=== PATIENT | female | born 1950 | race Caucasian/White ===

== ENCOUNTER → 2017-01-27 | Outpatient (CLI) | payer MEDICARE ==
--- NOTE | 2017-01-27 09:12 | REP ---
Chest two views HISTORY: Ischemic heart disease Comparison: None The lungs are clear. The heart is normal in size. The pulmonary vasculature is normal in appearance. The bony structure is intact. IMPRESSION: No acute disease. Signed by Jax Mg MD 01/27/2017 09:04 A
--- NOTE | 2017-01-27 23:23 | ECGEPIP ---
Stationary ECG Study [facility] Test Date: 2017-01-27 Pat Name: RAYMON RAMSEY Department: Room: - Gender: F Hand Collator: : 1950 Requested By: Laura ALAMO-BC Order Number: [id number] Reading MD: Hoang Novak Measurements Intervals [place] Rate: 56 P: 52 WV: 165 QRS: 27 QRSD: 88 T: 38 QT: 425 QTc: 413 Interpretive Statements SINUS BRADYCARDIA WITH SINUS ARRHYTHMIA No prior ECG available for comparison at the time of interpretation. Electronically Signed On 01-27-2017 23:23:29 EDT by Hoang Novak
== END ==
LOC: M EKG 08:30
PROVIDERS: ATTEND Nurse Practitioner Adult Health
DX: J44.9 Chronic obstructive pulmonary disease, unspecified (principal); J81.1 Chronic pulmonary edema; Z82.49 Family history of ischemic heart disease and other diseases of the circulatory system

== ENCOUNTER 2017-06-26 09:33 | Emergency (ER) | payer OTHER, MEDICARE | END 2017-06-26 11:23 | disposition home or self-care (01) | LOC: M ED 09:33 | DX: S40.012A Contusion of left shoulder, initial encounter (principal); S20.211A Contusion of right front wall of thorax, initial encounter; S20.212A Contusion of left front wall of thorax, initial encounter; V79.88XA Bus occupant (driver) (passenger) injured in other specified transport accidents, initial encounter; Y92.410 Unspecified street and highway as the place of occurrence of the external cause; F17.210 Nicotine dependence, cigarettes, uncomplicated | CPT/HCPCS: 71111 ==

== ENCOUNTER 2017-06-30 19:49 | Emergency (ER) | payer OTHER, MEDICARE ==
[2017-06-30] MEDS: MORPHINE 4 MG/ML 1ML SYRINGE IV (20:30)
[2017-06-30] MEDS: NS 500 ML IV (20:30)
[2017-06-30 20:55] LABS: BASO # 0.1 10^3/uL (0.0-0.2); BASO % 0.7 % (0.0-1.0); EOS # 0.2 10^3/uL (0.0-0.50); EOS % 2.3 % (0.0-3.0); HEMATOCRIT 41.6 % (36.0-47.0); HEMOGLOBIN 13.4 g/dl (12.0-16.0); IMMATURE GRANULOCYTE % 0.3 % (0-0); LYMPH # 2.1 10^3/uL (1.5-4.5); LYMPH % 29.9 % (24.0-44.0); MEAN CORPUSCULAR HEMOGLOBIN 28.4 pg (27.0-33.0); MEAN CORPUSCULAR HGB CONC 32.2 g/dl (32.0-36.5); MEAN CORPUSCULAR VOLUME 88.1 fl (80.0-96.0); MONO # 0.7 10^3/uL (0.0-0.8); MONO % 9.4 % (0.0-5.0); NEUTROPHILS # 3.9 10^3/uL (1.8-7.7); NEUTROPHILS % 57.4 % (36.0-66.0); PLATELET COUNT, AUTOMATED 266 10^3/uL (150-450); RED BLOOD COUNT 4.72 10^6/uL (4.00-5.40); RED CELL DISTRIBUTION WIDTH 14.2 % (11.5-14.5); WHITE BLOOD COUNT 6.9 10^3/uL (4.0-10.0)
[2017-06-30 21:05] LABS: INR 0.88
[2017-06-30 21:06] LABS: PARTIAL THROMBOPLASTIN TIME 29.1 SECONDS (26.8-37.9)
[2017-06-30 21:21] LABS: ALBUMIN 3.2 GM/DL (3.2-5.2); ALBUMIN/GLOBULIN RATIO 0.86 (1.00-1.93); ALKALINE PHOSPHATASE 75 U/L (45-117); ALT/SGPT 17 U/L (12-78); ANION GAP 4 MEQ/L (8-16); AST/SGOT 12 U/L (7-37); BILIRUBIN,DIRECT < 0.1 MG/DL (0.0-0.2); BILIRUBIN,TOTAL 0.3 MG/DL (0.2-1.0); BLOOD UREA NITROGEN 15 MG/DL (7-18); CALCIUM LEVEL 9.2 MG/DL (8.8-10.2); CARBON DIOXIDE LEVEL 30 MEQ/L (21-32); CHLORIDE LEVEL 109 MEQ/L (98-107); CREATININE FOR GFR 0.95 MG/DL (0.55-1.30); GLOMERULAR FILTRATION RATE > 60.0 (>45); GLUCOSE, FASTING 118 MG/DL (70-100); LIPASE 296 U/L (73-393); POTASSIUM SERUM 3.9 MEQ/L (3.5-5.1); SODIUM LEVEL 143 MEQ/L (136-145); TOTAL PROTEIN 6.9 GM/DL (6.4-8.2)
[2017-06-30] MEDS ORDERED: ISOVUE-370 76% 100ML VIAL (Q9967) As Ordered (21:37)
[2017-06-30] MEDS: NORCO 5/325MG TABLET (BULK FOR ED) PO (23:10)
== END 2017-06-30 23:29 | disposition home or self-care (01) ==
LOC: M ED 19:49
DX: S30.1XXA Contusion of abdominal wall, initial encounter (principal); R59.9 Enlarged lymph nodes, unspecified; S20.219A Contusion of unspecified front wall of thorax, initial encounter; Z82.49 Family history of ischemic heart disease and other diseases of the circulatory system; F17.200 Nicotine dependence, unspecified, uncomplicated; W01.198A Fall on same level from slipping, tripping and stumbling with subsequent striking against other object, initial encounter; Y92.89 Other specified places as the place of occurrence of the external cause; Y93.01 Activity, walking, marching and hiking; Y99.0 Civilian activity done for income or pay
CPT/HCPCS: Q9967

== ENCOUNTER 2017-07-16 13:28 | Day surgery (SDC) | payer OTHER, MEDICARE ==
[2017-07-16] MEDS ORDERED: LR 1,000 ML IV ×2 (13:45→17:00)
[2017-07-16] MEDS ORDERED: PROPOFOL 200 MG/20 ML VIAL As Ordered ×2 (16:06)
[2017-07-16] MEDS ORDERED: ONDANSETRON 4MG/2ML VIAL (J2405) IV (17:00)
== END 2017-07-16 17:35 | disposition home or self-care (01) ==
LOC: M SDC 17:35
DX: D49.0 Neoplasm of unspecified behavior of digestive system (principal); R10.31 Right lower quadrant pain; K57.30 Diverticulosis of large intestine without perforation or abscess without bleeding; F17.210 Nicotine dependence, cigarettes, uncomplicated; Z79.82 Long term (current) use of aspirin; Z79.899 Other long term (current) drug therapy
CPT/HCPCS: 45380

== ENCOUNTER → 2017-08-04 | Outpatient (CLI) | payer MEDICARE ==
[2017-08-04 14:20] LABS: BASO # 0.1 10^3/uL (0.0-0.2); BASO % 0.7 % (0.0-1.0); EOS # 0.1 10^3/uL (0.0-0.50); EOS % 1.3 % (0.0-3.0); HEMATOCRIT 47.5 % (36.0-47.0); HEMOGLOBIN 15.3 g/dl (12.0-16.0); IMMATURE GRANULOCYTE % 0.3 % (0-3.0); LYMPH # 1.9 10^3/uL (1.5-4.5); LYMPH % 21.1 % (24.0-44.0); MEAN CORPUSCULAR HEMOGLOBIN 27.9 pg (27.0-33.0); MEAN CORPUSCULAR HGB CONC 32.2 g/dl (32.0-36.5); MEAN CORPUSCULAR VOLUME 86.7 fl (80.0-96.0); MONO # 0.6 10^3/uL (0.0-0.8); NEUTROPHILS # 6.4 10^3/uL (1.8-7.7); NEUTROPHILS % 70.6 % (36.0-66.0); PLATELET COUNT, AUTOMATED 302 10^3/uL (150-450); RED BLOOD COUNT 5.48 10^6/uL (4.00-5.40); RED CELL DISTRIBUTION WIDTH 14.2 % (11.5-14.5); WHITE BLOOD COUNT 9.1 10^3/uL (4.0-10.0)
[2017-08-04 14:54] LABS: ALBUMIN 3.9 GM/DL (3.2-5.2); ALBUMIN/GLOBULIN RATIO 1.05 (1.00-1.93); ALKALINE PHOSPHATASE 95 U/L (45-117); ALT/SGPT 17 U/L (12-78); ANION GAP 6 MEQ/L (8-16); AST/SGOT 14 U/L (7-37); BILIRUBIN,TOTAL 0.6 MG/DL (0.2-1.0); BLOOD UREA NITROGEN 13 MG/DL (7-18); CALCIUM LEVEL 9.9 MG/DL (8.8-10.2); CARBON DIOXIDE LEVEL 30 MEQ/L (21-32); CHLORIDE LEVEL 104 MEQ/L (98-107); CREATININE FOR GFR 0.88 MG/DL (0.55-1.30); GLOMERULAR FILTRATION RATE > 60.0 (>45); GLUCOSE, FASTING 97 MG/DL (70-100); POTASSIUM SERUM 4.7 MEQ/L (3.5-5.1); SODIUM LEVEL 140 MEQ/L (136-145); TOTAL PROTEIN 7.6 GM/DL (6.4-8.2)
== END ==
LOC: M LAB 13:39
DX: Z01.818 Encounter for other preprocedural examination (principal); R05 Cough; B34.9 Viral infection, unspecified; Z79.899 Other long term (current) drug therapy; Z44.9 Encounter for fitting and adjustment of unspecified external prosthetic device
CPT/HCPCS: 71046

== ENCOUNTER 2017-08-09 08:59 | Inpatient (IN) | payer MEDICARE ==
[2017-08-09] MEDS ORDERED: fentaNYL 250 MCG/5 ML INJECTION (J3010) As Ordered (09:10)
[2017-08-09] MEDS ORDERED: LIDOCAINE 2% INJ 100 MG/5 ML SDV (FOR ANES.) As Ordered (09:10)
[2017-08-09] MEDS ORDERED: PROPOFOL 200 MG/20 ML VIAL As Ordered (09:10)
[2017-08-09] MEDS ORDERED: ROCURONIUM BROMIDE 50 MG/5 ML VIAL As Ordered (09:10)
[2017-08-09] MEDS ORDERED: MIDAZOLAM INJ 2 MG/2 ML VIAL (J2250) As Ordered (09:10)
[2017-08-09] MEDS: LR 1,000 ML IV ×4 (10:24→19:22)
[2017-08-09] MEDS ORDERED: ERTAPENEM 1 GM INJ (INVanz) (J1335) As Ordered (10:33)
[2017-08-09] MEDS: ALVIMOPAN 12 MG CAPSULE (ENTEREG) PO ×2 (10:49→22:05)
[2017-08-09] MEDS: ERTAPENEM SODIUM 1 GM in NS 50 ML IV (11:53)
[2017-08-09] MEDS: HEPARIN SOD (PORCINE) 5000 UNITS/ML VIAL SQ (12:02)
[2017-08-09] MEDS ORDERED: PHENYLephrine HCL 500 MCG/5 ML (100MCG/ML) SYRINGE (J2370) As Ordered (12:13)
[2017-08-09] MEDS ORDERED: GLYCOPYRROLATE INJ 0.2 MG/ML 2 ML VIAL As Ordered (12:54)
[2017-08-09] MEDS ORDERED: NEOSTIGMINE 10 MG/10 ML VIAL (J2710) As Ordered (12:54)
[2017-08-09] MEDS ORDERED: ONDANSETRON 4MG/2ML VIAL (J2405) As Ordered (12:55)
[2017-08-09] MEDS ORDERED: dexameTHASONE 4 MG/ML 1ML VIAL (J1100) As Ordered ×2 (12:55)
[2017-08-09] MEDS ORDERED: KETOROLAC 60 MG/2 ML VIAL (J1885) As Ordered (12:55)
[2017-08-09] MEDS ORDERED: HYDROmorphone HCL 2 MG/ML 1ML VIAL (J1170) As Ordered (12:57)
[2017-08-09] MEDS: BUPIVACAINE HCL 0.25% 30 ML VIAL As Ordered (14:44)
[2017-08-09] MEDS: LIDOCAINE 1% SDV INJ 30 ML VIAL As Ordered (14:44)
[2017-08-09] MEDS ORDERED: NORCO, ANEXSIA 5/325MG TABLET (HYDROcodone/ACETAMINOPHEN) PO (15:00)
[2017-08-09] MEDS ORDERED: MORPHINE 4 MG/ML 1ML VIAL (J2270) IV (15:00)
[2017-08-09] MEDS: METOCLOPRAMIDE INJ 10MG/2ML VIAL (J2765) IV (15:20)
[2017-08-09] MEDS: ONDANSETRON 4MG/2ML VIAL (J2405) IV ×2 (15:40→21:36)
[2017-08-09] MEDS ORDERED: METOCLOPRAMIDE INJ 10MG/2ML VIAL (J2765) IV (15:45)
[2017-08-09] MEDS ORDERED: PERCOCET 5MG/325MG TAB PO (15:45)
[2017-08-09] MEDS ORDERED: fentaNYL 100 MCG/2 ML INJECTION (J3010) IV (15:45)
[2017-08-09] MEDS ORDERED: HYDROmorphone HCL 1 MG/ML SYRINGE (J1170) IV (15:45)
[2017-08-09] MEDS: PANTOPRAZOLE 40MG INJ (PROTONIX) (C9113) IV (16:39)
[2017-08-09] MEDS: HEPARIN SOD (PORCINE) 5000 UNITS/ML VIAL SC ×2 (16:40→22:05)
[2017-08-09] MEDS: VITAMIN B COMPLEX/VIT C CAP PO (16:57)
[2017-08-09] MEDS: CYANOCOBALAMIN 500 MCG TAB PO (16:57)
[2017-08-09] MEDS: VITAMIN D 1,000 INTERNATIONAL UNITS TABLET PO (16:58)
[2017-08-10] MEDS: LR 1,000 ML IV ×3 (01:47→14:58)
[2017-08-10 05:34] LABS: BASO % 0.1 % (0.0-1.0); HEMATOCRIT 38.4 % (36.0-47.0); HEMOGLOBIN 12.3 g/dl (12.0-16.0); IMMATURE GRANULOCYTE % 0.4 % (0-3.0); LYMPH # 0.9 10^3/uL (1.5-4.5); LYMPH % 11.3 % (24.0-44.0); MEAN CORPUSCULAR HEMOGLOBIN 27.5 pg (27.0-33.0); MEAN CORPUSCULAR VOLUME 85.7 fl (80.0-96.0); MONO # 0.5 10^3/uL (0.0-0.8); MONO % 6.2 % (0.0-5.0); NEUTROPHILS # 6.4 10^3/uL (1.8-7.7); PLATELET COUNT, AUTOMATED 252 10^3/uL (150-450); RED BLOOD COUNT 4.48 10^6/uL (4.00-5.40); RED CELL DISTRIBUTION WIDTH 14.3 % (11.5-14.5); WHITE BLOOD COUNT 7.8 10^3/uL (4.0-10.0)
[2017-08-10] MEDS: HEPARIN SOD (PORCINE) 5000 UNITS/ML VIAL SC ×3 (05:44→21:11)
[2017-08-10 06:04] LABS: ANION GAP 5 MEQ/L (8-16); BLOOD UREA NITROGEN 15 MG/DL (7-18); CALCIUM LEVEL 8.5 MG/DL (8.8-10.2); CARBON DIOXIDE LEVEL 28 MEQ/L (21-32); CHLORIDE LEVEL 107 MEQ/L (98-107); CREATININE FOR GFR 0.79 MG/DL (0.55-1.30); GLOMERULAR FILTRATION RATE > 60.0 (>45); GLUCOSE, FASTING 135 MG/DL (70-100); POTASSIUM SERUM 4.1 MEQ/L (3.5-5.1); SODIUM LEVEL 140 MEQ/L (136-145)
[2017-08-10] MEDS: VITAMIN D 1,000 INTERNATIONAL UNITS TABLET PO (09:38)
[2017-08-10] MEDS: PANTOPRAZOLE 40MG INJ (PROTONIX) (C9113) IV (09:38)
[2017-08-10] MEDS: ALVIMOPAN 12 MG CAPSULE (ENTEREG) PO ×2 (09:38→21:11)
[2017-08-10] MEDS: VITAMIN B COMPLEX/VIT C CAP PO (09:38)
[2017-08-10] MEDS: ONDANSETRON 4MG/2ML VIAL (J2405) IV (09:39)
[2017-08-10] MEDS: CYANOCOBALAMIN 500 MCG TAB PO (09:39)
[2017-08-10] MEDS: KETOROLAC 30 MG/ML VIAL (J1885) IV ×2 (09:39→21:13)
[2017-08-10] MEDS: INFLUENZA VIRUS VACCINE HIGH DOSE 0.5 ML SYRINGE (90662) IM (10:49)
[2017-08-11] MEDS: LR 1,000 ML IV (00:51)
[2017-08-11] MEDS: HEPARIN SOD (PORCINE) 5000 UNITS/ML VIAL SC ×3 (05:16→21:46)
[2017-08-11 06:36] LABS: BASO % 0.5 % (0.0-1.0); EOS # 0.1 10^3/uL (0.0-0.50); EOS % 1.1 % (0.0-3.0); HEMATOCRIT 37.7 % (36.0-47.0); IMMATURE GRANULOCYTE % 0.2 % (0-3.0); LYMPH # 1.7 10^3/uL (1.5-4.5); LYMPH % 30.7 % (24.0-44.0); MEAN CORPUSCULAR HEMOGLOBIN 27.5 pg (27.0-33.0); MEAN CORPUSCULAR HGB CONC 31.8 g/dl (32.0-36.5); MEAN CORPUSCULAR VOLUME 86.3 fl (80.0-96.0); MONO # 0.4 10^3/uL (0.0-0.8); MONO % 6.6 % (0.0-5.0); NEUTROPHILS # 3.3 10^3/uL (1.8-7.7); NEUTROPHILS % 60.9 % (36.0-66.0); PLATELET COUNT, AUTOMATED 241 10^3/uL (150-450); RED BLOOD COUNT 4.37 10^6/uL (4.00-5.40); RED CELL DISTRIBUTION WIDTH 14.2 % (11.5-14.5); WHITE BLOOD COUNT 5.5 10^3/uL (4.0-10.0)
[2017-08-11 06:53] LABS: ANION GAP 5 MEQ/L (8-16); BLOOD UREA NITROGEN 11 MG/DL (7-18); CALCIUM LEVEL 8.8 MG/DL (8.8-10.2); CARBON DIOXIDE LEVEL 30 MEQ/L (21-32); CHLORIDE LEVEL 107 MEQ/L (98-107); CREATININE FOR GFR 0.75 MG/DL (0.55-1.30); GLOMERULAR FILTRATION RATE > 60.0 (>45); GLUCOSE, FASTING 88 MG/DL (70-100); POTASSIUM SERUM 3.9 MEQ/L (3.5-5.1); SODIUM LEVEL 142 MEQ/L (136-145)
[2017-08-11] MEDS: VITAMIN B COMPLEX/VIT C CAP PO (09:04)
[2017-08-11] MEDS: CYANOCOBALAMIN 500 MCG TAB PO (09:04)
[2017-08-11] MEDS: SENOKOT S TAB PO ×2 (09:05→21:46)
[2017-08-11] MEDS: VITAMIN D 1,000 INTERNATIONAL UNITS TABLET PO (09:05)
[2017-08-11] MEDS: ALVIMOPAN 12 MG CAPSULE (ENTEREG) PO ×2 (09:05→21:46)
[2017-08-11] MEDS: PANTOPRAZOLE 40MG INJ (PROTONIX) (C9113) IV (09:05)
[2017-08-11] MEDS: KETOROLAC 30 MG/ML VIAL (J1885) IV (21:46)
[2017-08-12] MEDS: HEPARIN SOD (PORCINE) 5000 UNITS/ML VIAL SC ×2 (05:55→13:48)
[2017-08-12 06:30] LABS: BASO % 0.4 % (0.0-1.0); EOS # 0.2 10^3/uL (0.0-0.50); EOS % 3.5 % (0.0-3.0); HEMATOCRIT 38.1 % (36.0-47.0); HEMOGLOBIN 12.3 g/dl (12.0-16.0); IMMATURE GRANULOCYTE % 0.2 % (0-3.0); LYMPH # 1.3 10^3/uL (1.5-4.5); LYMPH % 27.2 % (24.0-44.0); MEAN CORPUSCULAR HEMOGLOBIN 28.1 pg (27.0-33.0); MEAN CORPUSCULAR HGB CONC 32.3 g/dl (32.0-36.5); MEAN CORPUSCULAR VOLUME 87.2 fl (80.0-96.0); MONO # 0.4 10^3/uL (0.0-0.8); MONO % 7.3 % (0.0-5.0); NEUTROPHILS % 61.4 % (36.0-66.0); PLATELET COUNT, AUTOMATED 250 10^3/uL (150-450); RED BLOOD COUNT 4.37 10^6/uL (4.00-5.40); RED CELL DISTRIBUTION WIDTH 14.2 % (11.5-14.5); WHITE BLOOD COUNT 4.9 10^3/uL (4.0-10.0)
[2017-08-12 06:49] LABS: ANION GAP 5 MEQ/L (8-16); BLOOD UREA NITROGEN 13 MG/DL (7-18); CALCIUM LEVEL 8.8 MG/DL (8.8-10.2); CARBON DIOXIDE LEVEL 30 MEQ/L (21-32); CHLORIDE LEVEL 109 MEQ/L (98-107); CREATININE FOR GFR 0.82 MG/DL (0.55-1.30); GLOMERULAR FILTRATION RATE > 60.0 (>45); GLUCOSE, FASTING 96 MG/DL (70-100); POTASSIUM SERUM 3.8 MEQ/L (3.5-5.1); SODIUM LEVEL 144 MEQ/L (136-145)
[2017-08-12] MEDS: PANTOPRAZOLE 40MG INJ (PROTONIX) (C9113) IV (08:39)
[2017-08-12] MEDS: VITAMIN B COMPLEX/VIT C CAP PO (08:39)
[2017-08-12] MEDS: ALVIMOPAN 12 MG CAPSULE (ENTEREG) PO (08:40)
[2017-08-12] MEDS: CYANOCOBALAMIN 500 MCG TAB PO (08:40)
[2017-08-12] MEDS: VITAMIN D 1,000 INTERNATIONAL UNITS TABLET PO (08:40)
[2017-08-12] MEDS: SENOKOT S TAB PO (08:40)
[2017-08-12] MEDS: NORCO, ANEXSIA 5/325MG TABLET (HYDROcodone/ACETAMINOPHEN) PO (16:51)
== END 2017-08-12 17:14 | disposition home or self-care (01) | DRG 331 ==
LOC: M OR 08:59 → M MSPAV 16:34
PROC: 0DTF0ZZ Resection of Right Large Intestine, Open Approach (ICD-10-PCS; principal; 2017-08-09 11:30)
DX: C18.0 Malignant neoplasm of cecum (principal)

== ENCOUNTER → 2017-08-25 | Outpatient (REF) | payer MEDICARE ==
[2017-08-25 17:21] LABS: INR 0.86; PROTHROMBIN TIME 11.8 SECONDS (12.4-14.5)
[2017-08-25 17:22] LABS: PARTIAL THROMBOPLASTIN TIME 28.7 SECONDS (26.8-37.9)
[2017-08-27 09:37] LABS: CARCINOEMBRYONIC ANTIGEN 7.5 NG/ML (<2.5)
== END ==
LOC: M LAB REF 16:56
DX: C18.9 Malignant neoplasm of colon, unspecified (principal); R79.1 Abnormal coagulation profile
CPT/HCPCS: 82378

== ENCOUNTER 2017-09-01 09:44 | Day surgery (SDC) | payer MEDICARE ==
[2017-09-01] MEDS ORDERED: LIDOCAINE 1% MDV 20ML VIAL SQ (10:00)
[2017-09-01] MEDS: LR 1,000 ML IV (10:59)
[2017-09-01] MEDS ORDERED: PROPOFOL 200 MG/20 ML VIAL As Ordered (11:35)
[2017-09-01] MEDS ORDERED: fentaNYL 100 MCG/2 ML INJECTION (J3010) As Ordered (11:36)
[2017-09-01] MEDS ORDERED: MIDAZOLAM INJ 2 MG/2 ML VIAL (J2250) As Ordered ×2 (11:36→13:11)
[2017-09-01] MEDS ORDERED: LIDOCAINE 2% INJ 100 MG/5 ML SDV (FOR ANES.) As Ordered (11:44)
[2017-09-01] MEDS: HEPARIN SOD (PORCINE) 5000 UNITS/ML VIAL As Ordered (13:40)
[2017-09-01] MEDS: LIDOCAINE 1% SDV INJ 30 ML VIAL As Ordered (13:50)
[2017-09-01] MEDS: BUPIVACAINE HCL 0.25% 30 ML VIAL As Ordered (13:50)
[2017-09-01] MEDS ORDERED: KETOROLAC 60 MG/2 ML VIAL (J1885) As Ordered (13:55)
[2017-09-01] MEDS ORDERED: ONDANSETRON 4MG/2ML VIAL (J2405) As Ordered (13:55)
== END 2017-09-01 14:50 | disposition home or self-care (01) ==
LOC: M SDC 09:44
DX: C18.0 Malignant neoplasm of cecum (principal); Z98.51 Tubal ligation status; Z72.0 Tobacco use
CPT/HCPCS: 36561

== ENCOUNTER → 2017-12-07 | Outpatient (REF) | payer MEDICARE ==
[2017-12-07 13:31] LABS: MAGNESIUM LEVEL 2.2 MG/DL (1.8-2.4)
== END ==
LOC: M LAB REF 13:00
DX: C18.0 Malignant neoplasm of cecum (principal)
CPT/HCPCS: 83735

== ENCOUNTER → 2018-03-22 | Outpatient (CLI) | payer MEDICARE | LOC: M PLARAD 14:11 | DX: R97.1 Elevated cancer antigen 125 [CA 125] (principal); Z85.038 Personal history of other malignant neoplasm of large intestine; Z98.0 Intestinal bypass and anastomosis status | CPT/HCPCS: 78815 ==

== ENCOUNTER → 2018-12-05 | Outpatient (CLI) | payer MEDICARE ==
[~2018-12-05] MED LIST: ALEV220C2 PO; ASPI81CH49 PO; B COTAB3 PO; CVS400CA PO; HYDR-3715 PO; OSEL75CA PO; RIBO1CAP PO; VITA100018 PO; VITA100T59 PO; VITAD1000T PO; VITATAB11 PO
[2018-12-05 09:27] LABS: BASO # 0.1 10^3/uL (0.0-0.2); BASO % 0.9 % (0.0-1.0); EOS # 0.1 10^3/uL (0.0-0.50); EOS % 2.5 % (0.0-3.0); HEMOGLOBIN 16.5 g/dl (12.0-15.5); LYMPH # 1.5 10^3/uL (1.5-4.5); LYMPH % 26.3 % (24.0-44.0); MEAN CORPUSCULAR HEMOGLOBIN 31.8 pg (27.0-33.0); MEAN CORPUSCULAR HGB CONC 32.4 g/dl (32.0-36.5); MEAN CORPUSCULAR VOLUME 98.3 fl (80.0-96.0); MONO # 0.4 10^3/uL (0.0-0.8); NEUTROPHILS # 3.5 10^3/uL (1.8-7.7); NEUTROPHILS % 63.1 % (36.0-66.0); PLATELET COUNT, AUTOMATED 224 10^3/uL (150-450); RED BLOOD COUNT 5.19 10^6/uL (4.00-5.40); WHITE BLOOD COUNT 5.6 10^3/uL (4.0-10.0)
[2018-12-05 10:25] LABS: ALBUMIN 3.7 GM/DL (3.2-5.2); ALT/SGPT 19 U/L (12-78); BILIRUBIN,TOTAL 0.7 MG/DL (0.2-1.0); BLOOD UREA NITROGEN 14 MG/DL (7-18); CALCIUM LEVEL 9.1 MG/DL (8.8-10.2); CARBON DIOXIDE LEVEL 28 MEQ/L (21-32); CHLORIDE LEVEL 109 MEQ/L (98-107); CHOLESTEROL LEVEL 242 MG/DL (<200); CHOLESTEROL RISK RATIO 2.396 (<5); CREATININE FOR GFR 0.82 MG/DL (0.55-1.30); GLOMERULAR FILTRATION RATE > 60.0 (>39); GLUCOSE, FASTING 94 MG/DL (70-100); HDL CHOLESTEROL 101 MG/DL (>40); LDL CHOLESTEROL 125 MG/DL (<100); NON-HDL-C 141 MG/DL; POTASSIUM SERUM 4.8 MEQ/L (3.5-5.1); SODIUM LEVEL 143 MEQ/L (136-145); TOTAL PROTEIN 6.8 GM/DL (6.4-8.2); TRIGLYCERIDES LEVEL 80 MG/DL (<150)
[2018-12-05 10:30] LABS: HEMOGLOBIN A1c 5.9 %
--- NOTE | 2018-12-05 15:26 | REP ---
CHEST X-RAY: Two views. HISTORY: COPD. COMPARISON CHEST X-RAY: September 01, 2017. FINDINGS: A left subclavian Lqqulw-G-Fmcc catheter is seen with its tip in the expected location of the superior vena cava. The lungs are well inflated and free of infiltrate. Pleural angles are sharp. Heart size is normal. There are minimal degenerative changes in the thoracic spine. Pulmonary vasculature is not increased. IMPRESSION: Qhbcqu-J-Yzjg catheter in place. Otherwise no acute disease. Electronically Signed by Rober Guy MD 12/05/2018 05:18 P
== END ==
LOC: M LAB 08:07
PROVIDERS: ATTEND Nurse Practitioner Adult Health
DX: E87.6 Hypokalemia (principal); E55.9 Vitamin D deficiency, unspecified; E83.42 Hypomagnesemia; J44.9 Chronic obstructive pulmonary disease, unspecified; C18.0 Malignant neoplasm of cecum; Z79.899 Other long term (current) drug therapy; Z95.828 Presence of other vascular implants and grafts

== ENCOUNTER 2018-12-14 08:25 | Day surgery (SDC) | payer MEDICARE ==
[~2018-12-14] VITALS: Ht 162.6 cm; Wt 68.7 kg
[~2018-12-14 08:25] MED LIST changes: -B COTAB3 PO; -CVS400CA PO; +NS 1,000 ML IV ONE; -VITA100T59 PO
[2018-12-14] MEDS ORDERED: CVS400CA PO (08:46)
[2018-12-14] MEDS ORDERED: VITA100T59 PO (08:46)
[2018-12-14] MEDS ORDERED: B COTAB3 PO (08:46)
[2018-12-14] MEDS ORDERED: LIDOCAINE 2% INJ 100 MG/5 ML SDV (FOR ANES.) As Ordered ONE (09:41)
[2018-12-14] MEDS ORDERED: PROPOFOL 500 MG/50 ML VIAL As Ordered ONE (09:41)
--- NOTE | 2018-12-14 10:18 | ROOR ---
Patient Name: Nano Vasquez Procedure Date: 12/14/2018 9:37 AM Date of : 1950 Age: 68 Room: [facility] Gender: Female Note Status: Finalized Procedure: Colonoscopy Indications: High risk colon cancer surveillance: Personal history of colon cancer Providers: Michael Flood MD Referring MD: JEFF COBIAN NP Requesting Provider: Medicines: Monitored Anesthesia Care Complications: No immediate complications. Procedure: Pre-Anesthesia Assessment: - Prior to the procedure, a History and Physical was performed, and patient medications and allergies were reviewed. The patient is competent. The risks and benefits of the procedure and the sedation options and risks were discussed with the patient. All questions were answered and informed consent was obtained. Patient identification and proposed procedure were verified by the physician, the nurse and the anesthesiologist in the procedure room. Mental Status Examination: alert and oriented. Airway Examination: normal oropharyngeal airway and neck mobility. Respiratory Examination: clear to auscultation. CV Examination: normal. Prophylactic Antibiotics: The patient does not require prophylactic antibiotics. Prior Anticoagulants: The patient has taken no previous anticoagulant or antiplatelet agents. ASA Grade Assessment: II - A patient with mild systemic disease. After reviewing the risks and benefits, the patient was deemed in satisfactory condition to undergo the procedure. The anesthesia plan was to use monitored anesthesia care (MAC). Immediately prior to administration of medications, the patient was re-assessed for adequacy to receive sedatives. The heart rate, respiratory rate, oxygen saturations, blood pressure, adequacy of pulmonary ventilation, and response to care were monitored throughout the procedure. The physical status of the patient was re-assessed after the procedure. The Colonoscope was introduced through the anus and advanced to the ileocolonic anastomosis. The colonoscopy was somewhat difficult due to a tortuous colon. The patient tolerated the procedure well. The quality of the bowel preparation was good. Findings: The perianal and digital rectal examinations were normal. A few small-mouthed diverticula were found in the sigmoid colon. Two sessile polyps were found in the recto-sigmoid colon. The polyps were diminutive in size. These polyps were removed with a cold biopsy forceps. Resection and retrieval were complete. Estimated blood loss was minimal. A 5 mm polyp was found in the rectum. The polyp was pedunculated. The polyp was removed with a cold snare. Resection and retrieval were complete. Estimated blood loss was minimal. No additional abnormalities were found on retroflexion. Impression: - Diverticulosis in the sigmoid colon. - Two diminutive polyps at the recto-sigmoid colon, removed with a cold biopsy forceps. Resected and retrieved. - One 5 mm polyp in the rectum, removed with a cold snare. Resected and retrieved. Recommendation: - Discharge patient to home (ambulatory). - Repeat colonoscopy in 3 years for surveillance. Michael Flood MD Michael Flood MD 12/14/2018 10:17:53 AM Electronically signed by Michael Flood MD Number of Addenda: 0 Note Initiated On: 12/14/2018 9:37 AM Estimated Blood Loss: Estimated blood loss was minimal.
[2018-12-14 10:40] VITALS: BP 145/64
[2018-12-14] MEDS ORDERED: ceFAZolin 1GM INJ (J0690 PER 500MG) As Ordered ONE (12:07)
== END 2018-12-14 10:50 | disposition home or self-care (01) ==
LOC: M OPP 08:25
PROVIDERS: ATTEND Surgery
DX: Z85.038 Personal history of other malignant neoplasm of large intestine (principal); D12.7 Benign neoplasm of rectosigmoid junction; K62.1 Rectal polyp; K57.30 Diverticulosis of large intestine without perforation or abscess without bleeding; F17.210 Nicotine dependence, cigarettes, uncomplicated
CPT/HCPCS: 45380; 45385; 88305; J0690

== ENCOUNTER 2019-02-04 08:44 | Inpatient (IN) | payer MEDICARE ==
[~2019-02-04] VITALS: Ht 162.6 cm; Wt 68.9 kg
[~2019-02-04 08:44] MED LIST changes: +B COTAB3 PO; +CHOL100029 PO; +CVS400CA PO; -NS 1,000 ML IV ONE; +VITA100T59 PO; -VITAD1000T PO
[2019-02-04] MEDS: NICOTINE 14 MG/24 HR TRANSDERMAL TD SCH (09:00)
[2019-02-04] MEDS ORDERED: NS 1,000 ML IV ONE (09:15)
[2019-02-04 09:42] LABS: BASO % 0.5 % (0.0-1.0); HEMATOCRIT 47.4 % (36.0-47.0); HEMOGLOBIN 15.8 g/dl (12.0-15.5); LYMPH # 0.5 10^3/uL (1.5-5.0); LYMPH % 8.1 % (24.0-44.0); MEAN CORPUSCULAR HEMOGLOBIN 31.5 pg (27.0-33.0); MEAN CORPUSCULAR HGB CONC 33.3 g/dl (32.0-36.5); MEAN CORPUSCULAR VOLUME 94.6 fl (80.0-96.0); MONO # 0.4 10^3/uL (0.0-0.8); MONO % 6.5 % (0.0-5.0); NEUTROPHILS # 5.3 10^3/uL (1.5-8.5); NEUTROPHILS % 84.6 % (36.0-66.0); PLATELET COUNT, AUTOMATED 150 10^3/uL (150-450); RED BLOOD COUNT 5.01 10^6/uL (4.00-5.40); WHITE BLOOD COUNT 6.3 10^3/uL (4.0-10.0)
[2019-02-04] MEDS: IPRATROPIUM 0.5MG/ALBUTEROL 2.5MG INH SOL UD 3ML (DUONEB)(J7620) NEB PRN ×3 (09:43→11:49)
[2019-02-04] MEDS ORDERED: ACETAMINOPHEN TAB 650MG DOSE (2X325MG) PO ONE (09:45)
[2019-02-04] MEDS ORDERED: methylPREDNISolone INJ 125 MG/2 ML VIAL (J2930) IV ONE (10:00)
--- NOTE | 2019-02-04 10:22 | REP ---
Clinical: Cough and dyspnea . Comparison: 12/05/2018 . Technique: PA and lateral. Findings: The mediastinum and cardiac silhouette are normal. The lung saleem are clear and without acute consolidation, effusion, or pneumothorax. The skeletal structures are intact and normal. Impression: 1. No acute cardiopulmonary process. Electronically Signed by Pedro Weiss MD 02/04/2019 10:13 A
[2019-02-04 10:27] LABS: BLOOD UREA NITROGEN 13 MG/DL (7-18); CALCIUM LEVEL 8.8 MG/DL (8.8-10.2); CARBON DIOXIDE LEVEL 26 MEQ/L (21-32); CHLORIDE LEVEL 102 MEQ/L (98-107); CK-MB VALUE MASS < 1.0 NG/ML (<3.6); CPK CREATINE PHOSPHOKINASE 42 U/L (26-192); CREATININE FOR GFR 0.98 MG/DL (0.55-1.30); GLOMERULAR FILTRATION RATE 59.7 (>39); GLUCOSE, FASTING 117 MG/DL (70-100); MB/CK RELATIVE INDEX 2.38 (< OR =4); NT-PRO BNP 264 PG/ML (<125); POTASSIUM SERUM 4.1 MEQ/L (3.5-5.1); SODIUM LEVEL 136 MEQ/L (136-145); THYROID STIMULATING HORMONE 0.549 uIU/ML (0.358-3.740); TROPONIN I < 0.02 NG/ML (< 0.10)
[2019-02-04 10:42] LABS: INR 1.02; PROTHROMBIN TIME 13.1 SECONDS (11.8-14.0)
[2019-02-04] MEDS ORDERED: IBUPROFEN 600 MG TAB PO ONE (12:45)
[2019-02-04] MEDS ORDERED: ALBUTEROL SULFATE 2.5 MG/0.5 ML INH NEB SOLN NEB PRN (13:45)
[2019-02-04] MEDS ORDERED: ACETAMINOPHEN TAB 650MG DOSE (2X325MG) PO PRN (13:45)
--- NOTE | 2019-02-04 14:18 | HPEPDOC ---
[facility] Medical History & Physical Date of Admission Feb 04, 2019 Date of Service: Feb 04, 2019 Other Provider CALLY Huber- Attending Physician: NEGRITA LEAL MD History and Physical CHIEF COMPLAINT: Shortness of breath HISTORY OF PRESENT ILLNESS: Patient is a 68-year-old female who presents to the emergency room with a four-day history of shortness of breath. Patient says 4 days ago she started to notice it is becoming more difficult to breathe. At this time she is also experiencing a runny nose and cough that was productive for clear to yellow sputum with no blood. Patient says over the last 4 days the shortness of breath has increased slowly until this morning when she realized that she needed to seek medical care because the shortness of breath was becoming very bothersome. Patient does not have a medical history for COPD nor has she ever had any episodes like this in her past. Patient states that she restarted work 4 days ago. 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 Patient also complains of a headache which is worsened when she is coughing. P atient denies any pleuritic chest pain. Patient denies any episodes of waking up gasping for air. Patient says she sleeps on the couch because she got into the habit of sleeping on the couch after her hemicolectomy for colon cancer. Patient recently got her port removed as she was told she was cancer free. PAST MEDICAL HISTORY: 1. Right-sided colon cancer status post resection and chemotherapy. PAST SURGICAL HISTORY: 1. Right hemicolectomy with reanastomosis. 2. Port placement and removal. SOCIAL HISTORY: Patient admits to smoking 06/20 a day since she was 11 years old. She says she occasionally drinks homemade moonshine that a friend makes. She denies any illicit drugs including marijuana. She lives at home with her boyfriend and they do not have any cats, dogs, or birds. 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 She never worked in any other job that involves any harmful chemicals or dusts. FAMILY HISTORY: Patient's mother has a cancer history. Patient says her siblings have diabetes. ALLERGIES: Please see below. REVIEW OF SYSTEMS: CONSTITUTIONAL: Patient endorses episodes of chills but denies fevers, night sweats, or weight loss. HEENT: Patient endorses headache and runny nose but denies sore throat or blurry vision. CARDIOVASCULAR: Patient denies chest pain or palpitations. RESPIRATORY: Patient endorses shortness of breath and cough as described above in HPI. GASTROINTESTINAL: Patient denies abdominal pain, nausea, vomiting, diarrhea, constipation, or bloody stools. GENITOURINARY: Patient denies pain or difficulty with urination. Patient denies blood in her urine. SKIN: Patient denies any rashes. MUSCULOSKELETAL: Patient denies any swollen joints or myalgias. NEUROLOGICAL: Patient denies any numbness or tingling. HEMATOLOGIC/LYMPHATIC: Patient denies any lumps in her neck, axilla, or groin. Patient denies easy bruising. HOME MEDICATIONS: Patient denies any home medications PHYSICAL EXAMINATION: VITAL SIGNS: Temperature 98.8, pulse 77, respiratory rate 20, blood pressure 12 1/57, pulse oximetry 95% on 2 L via nasal cannula. GENERAL APPEARANCE: Alert and oriented female patient who was laying on the ER stretcher when I walked in. Patient appeared in mild distress as she was short of breath. Patient was able to speak in complete sentences but had increased work of breathing while speaking. HEENT: Normocephalic, atraumatic, anicteric sclera, posterior pharynx was noner ythematous, and moist mucous membranes. CARDIOVASCULAR: Regular rate and rhythm with a normal S1 and S2. No murmurs, rubs, or gallops were auscultated. LUNGS: Diminished air movement throughout her lung saleem. No wheezes, rhonchi, rales auscultated. ABDOMEN: Soft, nontender to palpation, with normoactive bowel sounds. MUSCULOSKELETAL: No swollen joints or tender areas. EXTREMITIES: No pretibial edema, radial and dorsalis pedis pulses equal bilaterally. NEUROLOGICAL: Cranial nerves IIXII intact bilaterally. Patient had 5/5 soil chemist strength, elbow flexion and extension, dorsi and plantar flexion of the ankle. Patient reported equal sensation to light touch of the upper and lower extremities bilaterally.. PSYCHIATRIC: She appeared anxious but did have good insight and judgment. LABORATORY DATA: See below. IMAGING: A chest x-ray performed on 02/04/2018 showed no acute cardiopulmonary process MICROBIOLOGY: Please see below. ASSESSMENT: Patient is a 68-year-old female who presented to the emergency room with new onset shortness of breath that is insidious in its onset. Patient does have an extensive smoking history. Although patient was not wheezing on exam she did receive 3 nebulizer treatments in the emergency department. Her shortness of breath is most likely secondary to undiagnosed chronic obstructive pulmonary disease. PLAN: 1. Chronic obstructive pulmonary disease. Based on physical exam in the patient's history of insidious onset of her shortness of breath which seems to have started with a viral upper respiratory infection, I believe the patient's symptoms most likely secondary to chronic obstructive pulmonary disease that is undiagnosed. Patient has an extensive smoking history starting at the age of 11. Although the patient was not wheezing on physical exam the patient did receive 3 DuoNeb treatments within an hour in the emergency department. I spoke with the emergency department physician, Dr. Jj who did say his physical exam showed that the patient was tight and not moving a lot of air. At this time we will treat the patient with DuoNeb's every 4 hours when the patient is awake with albuterol nebulizer every 2 hours as needed for increased shortness of breath. Patient will be admitted to the medical surgical floor on continuous pulse oximetry monitoring. Patient will have Solu-Medrol 40 mg IV every 8 hours. I have also started the patient on Advair 2 puffs twice a day. We will continue to monitor the patient. Patient does not have a leukocytosis at this time so pneumonia is less likely however, we will continue to monitor the patient for improvement with her treatment. Patient does not appear volume overloaded so I do not believe this is congestive heart failure. A respiratory panel and blood cultures have been ordered and we will await those results. 2. DVT prophylaxis. Patient will be on Lovenox 40 mg daily. 3. CODE STATUS: Patient will be a DO NOT RESUSCITATE and DO NOT INTUBATE. Patient would like a trial of noninvasive positive pressure ventilation. A MOLST form has been filled out and explained with the patient. It is signed and on the chart. I performed a history and physical examination of the patient and discussed their management with the above documenter. I reviewed the note and agree with the documented findings and plan of care. Vital Signs Vital Signs Date Time Temp Pulse Resp B/P (MAP) Pulse Ox O2 Delivery O2 Flow Rate FiO2 02/04/19 12:38 98.8 02/04/19 12:30 122/58 (79) 02/04/19 12:25 77 20 95 Nasal Cannula 2.0 Laboratory Data Labs 24H Laboratory Tests 2 02/04/19 08:57: Immature Granulocyte % (Auto) 0.3, White Blood Count 6.3, Red Blood Count 5.01, Hemoglobin 15.8H, Hematocrit 47.4H, Mean Corpuscular Volume 94.6, Mean Corpuscular Hemoglobin 31.5, Mean Corpuscular Hemoglobin Concent 33.3, Red Cell Distribution Width 13.5, Platelet Count 150, Neutrophils (%) (Auto) 84.6H, Lymphocytes (%) (Auto) 8.1L, Monocytes (%) (Auto) 6.5H, Eosinophils (%) (Auto) 0.0, Basophils (%) (Auto) 0.5, Neutrophils # (Auto) 5.3, Lymphocytes # (Auto) 0.5L, Monocytes # (Auto) 0.4, Eosinophils # (Auto) 0.0, Basophils # (Auto) 0.0, Nucleated Red Blood Cells % (auto) 0.0, Prothrombin Time 13.1, Prothromb Time International Ratio 1.02, Anion Gap 8, Glomerular Filtration Rate 59.7, Blood Urea Nitrogen 13, Creatinine 0.98, Sodium Level 136, Potassium Level 4.1, Chloride Level 102, Carbon Dioxide Level 26, Calcium Level 8.8, Total Creatine Kinase 42, Creatine Kinase MB < 1.0, Creatine Kinase MB Relative Index 2.38, Troponin I < 0.02, UX-Htv-Z-Type Natriuretic Peptide 264H, Thyroid Stimulating Hormone (TSH) 0.549 CBC/BMP Laboratory Tests 02/04/19 08:57 Red Blood Count 5.01, Mean Corpuscular Volume 94.6, Mean Corpuscular Hemoglobin 31.5, Mean Corpuscular Hemoglobin Concent 33.3, Red Cell Distribution Width 13.5, Neutrophils (%) (Auto) 84.6 H, Lymphocytes (%) (Auto) 8.1 L, Monocytes (%) (Auto) 6.5 H, Eosinophils (%) (Auto) 0.0, Basophils (%) (Auto) 0.5, Neutrophils # (Auto) 5.3, Lymphocytes # (Auto) 0.5 L, Monocytes # (Auto) 0.4, Eosinophils # (Auto) 0.0, Basophils # (Auto) 0.0, Calcium Level 8.8, Total Creatine Kinase 42 Home Medications Scheduled Nicotine (Nicoderm Cq) 21 Mg/24 Hr Patch.td24, 1 PATCH TOP DAILY for smoking cessation Prednisone (Prednisone) 10 Mg Tablet, 10 MG PO TAPER Take 4 tabs daily x 3 days, then 3 tabs daily x 3 days, then 2 tabs daily x 3 days, then 1 tab daily x 3 days and stop Salmeterol/Fluticasone (Advair 250-50 Diskus) 1 Each Blst.w.dev, 1 PUFF INH BID Allergies Uncoded Allergies: ONE TYPE OF CHEMOTHERAPY (Allergy, Intermediate, left side of body rash, 12/06/18) A-FIB/CHADSVASC A-FIB History Current/History of A-Fib/PAF?: No ALFIE CR DO Feb 04, 2019 14:18 NEGRITA LEAL MD Feb 06, 2019 07:01
[2019-02-04 15:26] VITALS: BP 127/63
[2019-02-04] MEDS: IPRATROPIUM 0.5MG/ALBUTEROL 2.5MG INH SOL UD 3ML (DUONEB)(J7620) NEB SCH ×2 (15:52→19:54)
[2019-02-04] MEDS: methylPREDNISolone INJ 40 MG/1 ML VIAL (J2920) IV SCH (17:57)
--- NOTE | 2019-02-04 19:34 | ECGEPIP ---
[facility] - ED Test Date: 2019-02-04 Pat Name: RAYMON RAMSEY Department: Room: - Gender: Female [employer] Agent: pmo : 1950 Requested By: MARIAMA Mays Order Number: [id number] Reading MD: Humaira Quintero Measurements Intervals [place] Rate: 89 P: 62 ID: [id number] QRS: 62 QRSD: 82 T: 18 QT: 342 QTc: 417 Interpretive Statements SINUS RHYTHM NONSPECIFIC T-WAVE ABNORMALITY INCREASED RATE 01/27/17 Electronically Signed on 02-04-2019 19:33:48 EDT by Humaira Quintero
[2019-02-04] MEDS: ADVAIR HFA 115/21MCG INHALER INH SCH (19:50)
[2019-02-04 22:00] VITALS: BP 110/40
[2019-02-05] MEDS: methylPREDNISolone INJ 40 MG/1 ML VIAL (J2920) IV SCH ×2 (01:03→10:07)
[2019-02-05] MEDS: IPRATROPIUM 0.5MG/ALBUTEROL 2.5MG INH SOL UD 3ML (DUONEB)(J7620) NEB SCH ×4 (05:20→11:26)
[2019-02-05 06:00] VITALS: BP 117/53
[2019-02-05 06:58] LABS: ALBUMIN 2.8 GM/DL (3.2-5.2); BILIRUBIN,TOTAL 0.3 MG/DL (0.2-1.0); CALCIUM LEVEL 9.1 MG/DL (8.8-10.2); CREATININE FOR GFR 0.98 MG/DL (0.55-1.30); GLOMERULAR FILTRATION RATE 59.7 (>39); POTASSIUM SERUM 4.2 MEQ/L (3.5-5.1); TOTAL PROTEIN 6.1 GM/DL (6.4-8.2)
[2019-02-05] MEDS: ADVAIR HFA 115/21MCG INHALER INH SCH (08:05)
[2019-02-05] MEDS ORDERED: ENOXAPARIN 40 MG/0.4 ML SYRINGE (J1650) SC SCH (09:00)
[2019-02-05] MEDS: NICOTINE 14 MG/24 HR TRANSDERMAL TD SCH (09:00)
[2019-02-05] MEDS ORDERED: ADV250INH INH (13:38)
[2019-02-05] MEDS ORDERED: PRED10TA2 PO (13:38)
[2019-02-05] MEDS ORDERED: NICO21DI6 TOP (13:43)
[2019-02-05 14:00] VITALS: BP 126/53
--- NOTE | 2019-02-05 14:40 | DS.PDOC ---
Discharge Summary General Date of Admission Feb 04, 2019 at 12:48 Date of Discharge 02/05/2019 Discharge Summary DISCHARGE DIAGNOSIS: Decompensated COPD SECONDARY DIAGNOSIS: 1. Shortness of breath 2. Tobacco abuse 3. Colon cancer PROCEDURES PERFORMED DURING STAY: None. CONSULTANTS: None HOSPITAL COURSE: Patient is a 68-year-old female presented with several days of progressively worsening increased cough changes in sputum shortness of breath associated with her continued nicotine abuse and ongoing smoking for greater than 50 pack years. She denied any sick contacts she is provided with IV steroids and nebulizer treatments with significant improvement in her symptoms. She has never seen a developer relations manager at pulmonary function testing completed she was given a presumed new diagnosis of COPD based on her presentation and response to therapy. DISCHARGE MEDICATIONS: Please see below. ALLERGIES: Please see below. SUBJECTIVE: Patient patient tells me she is feeling significantly better she is breathing back to her normal she would like to go home otherwise patient denies chest pain, shortness, breath, nausea, vomiting, fevers, chills OBJECTIVE: PHYSICAL EXAMINATION: VITAL SIGNS: Please see below. GENERAL: Pleasant elderly female lying flat in bed accompanied by her awake alert oriented speaking in complete sentences no acute distress HEENT: Moist mucous membranes no elevation and CVP CARDIOVASCULAR: S1 S2 regular no additional heart sounds appreciated. RESPIRATORY: Clear to auscultation bilaterally. No audible wheeze prolonged expiratory phase ABDOMINAL: Bowel sounds present abdomen soft and nontender EXTREMITIES: No clubbing, cyanosis, edema NEUROLOGICAL: Spontaneously moves all 4 extremities cranial 2 through 12 grossly intact, no gross focal deficits appreciated PSYCHOLOGICAL: Appropriate LABORATORY DATA, MICROBIOLOGY: Please see below. IMAGING STUDIES: Chest x-ray:1. No acute cardiopulmonary process. DVT prophylaxis ordered: Lovenox ASSESSMENT AND PLAN: This is a 68-year-old female with decompensated COPD PROBLEMS: 1. Shortness of breath: Patient's [id number] history and ongoing active tobacco abuse who presented with several days of increased cough or sputum shortness of breath and was diagnosed with COPD she was treated with steroids and nebulizers with prompt resolution of her symptoms. 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 She was able to ambulate on the day of discharge maintaining sats greater than 92% with significant improvement in her symptoms. Cessation counseling was provided at great length. She'll be discharged on new Advair as well as a prednisone taper. I've advised her to follow-up with her PCP and consider outpatient pulmonary referral for pulmonary function testing 2. Tobacco abuse: As outlined above cessation counseling provided. DISPOSITION: Home to self-care with her . DISCHARGE CONDITION: Improved and Stable. FOLLOW UP: PCP within 7 days ACTIVITY: As tolerated. DIET: As prior to admission TIME SPENT ON DISCHARGE: 40 minutes Vital Signs/I&Os Vital Signs Date Time Temp Pulse Resp B/P (MAP) Pulse Ox O2 Delivery O2 Flow Rate FiO2 02/05/19 06:00 96.8 60 18 117/53 (74) 92 02/04/19 15:10 Room Air 02/04/19 14:15 2.0 I&O- Last 24 Hours up to 6 AM 02/05/19 05:59 Intake Total 150 ml Output Total 600 ml Balance -450 ml Laboratory Data Labs 24H Laboratory Tests 2 02/05/19 05:14: Anion Gap 8, Glomerular Filtration Rate 59.7, Blood Urea Nitrogen 25#H, Creatinine 0.98, Sodium Level 138, Potassium Level 4.2, Chloride Level 105, Carbon Dioxide Level 25, Calcium Level 9.1, Aspartate Amino Transf (AST/SGOT) 31, Alanine Aminotransferase (ALT/SGPT) 44, Alkaline Phosphatase 82, Total Bilirubin 0.3, Total Protein 6.1L, Albumin 2.8L, Albumin/Globulin Ratio 0.85L CBC/BMP Laboratory Tests 02/05/19 05:14 Calcium Level 9.1, Aspartate Amino Transf (AST/SGOT) 31, Alanine Aminotransferase (ALT/SGPT) 44, Alkaline Phosphatase 82, Total Bilirubin 0.3, Total Protein 6.1 L, Albumin 2.8 L Microbiology Microbiology 02/04/19 Blood Culture, Received Pending 02/04/19 Blood Culture - Preliminary, Resulted No growth after 24 hours . All specim... 02/04/19 Respiratory Virus Panel (PCR) (CLAU) - Final, Complete Discharge Medications Scheduled Nicotine (Nicoderm Cq) 21 Mg/24 Hr Patch.td24, 1 PATCH TOP DAILY for smoking ce ssation Prednisone (Prednisone) 10 Mg Tablet, 10 MG PO TAPER Take 4 tabs daily x 3 days, then 3 tabs daily x 3 days, then 2 tabs daily x 3 days, then 1 tab daily x 3 days and stop Salmeterol/Fluticasone (Advair 250-50 Diskus) 1 Each Blst.w.dev, 1 PUFF INH BID Allergies Uncoded Allergies: ONE TYPE OF CHEMOTHERAPY (Allergy, Intermediate, left side of body rash, 12/06/18) NEGRITA LEAL MD Feb 05, 2019 14:40
== END 2019-02-05 15:18 | disposition home or self-care (01) | DRG 192 ==
LOC: M ED 08:44 → M ED INP 12:48 → M MSPAV 16:02
PROVIDERS: ADMIT Internal Medicine; ATTEND Internal Medicine
DX: J44.1 Chronic obstructive pulmonary disease with (acute) exacerbation (principal); F17.200 Nicotine dependence, unspecified, uncomplicated; Z85.038 Personal history of other malignant neoplasm of large intestine; Z66 Do not resuscitate

== ENCOUNTER → 2019-04-10 | Outpatient (CLI) | payer MEDICARE ==
[~2019-04-10] MED LIST changes: +ADV250INH INH; +NICO21DI6 TOP; +PRED10TA2 PO
--- NOTE | 2019-04-10 12:54 | REP ---
Two-view chest: 04/10/2019. Indication: Dyspnea. Cough. Comparison: 02/04/2019. Findings: The lungs are clear. There is no pleural effusion or pneumothorax. The cardiac silhouette is unremarkable. Impression: No acute cardiopulmonary process. Electronically Signed by Aurelio Schmidt DO 04/10/2019 12:45 P
== END ==
LOC: M RAD 12:18
PROVIDERS: ATTEND Nurse Practitioner Adult Health
DX: J20.9 Acute bronchitis, unspecified (principal)

== ENCOUNTER → 2019-07-19 | Outpatient (CLI) | payer MEDICARE ==
[~2019-07-19] MED LIST changes: +GASTROGRAFIN SOLUTION 30ML (Q9963) As Ordered ONE; +ISOVUE-370 76% 100ML VIAL (Q9967) As Ordered ONE
--- NOTE | 2019-07-19 11:10 | REP ---
Clinical: Stage III colon cancer. Restaging. Technique: Axial contrast enhanced images from the thoracic inlet to the upper abdomen with coronal and sagittal re-formations using 100 ml Isovue 370 intravenous contrast material with coronal and sagittal re-formations. Findings: Bilateral lung saleem are clear. No consolidation, nodule or mass lesion. No pleural effusion. No pneumothorax. Tracheobronchial tree is patent. No axillary, hilar, or mediastinal adenopathy. Thoracic aorta and heart/pericardium are relatively normal. No cardiomegaly or pericardial effusion. No thoracic aortic aneurysm or dissection. Surrounding musculoskeletal structures are intact without acute focal abnormality. Findings: No acute mediastinal or pleuroparenchymal process. No evidence for metastatic disease. Electronically Signed by Pedro Weiss MD 07/19/2019 11:02 A
--- NOTE | 2019-07-19 11:14 | REP ---
Clinical: Stage III colon cancer. Restaging. Technique: Axial contrast enhanced images from the lung bases to the pubic symphysis using oral (per protocol) and 100 ml Isovue 370 intravenous contrast material with coronal and sagittal re-formations. Precontrast and delayed images of the abdomen obtained. Comparison: 09/13/2018, 06/30/2017. Findings: Liver, spleen, pancreas, gallbladder, bilateral adrenal glands and kidneys are essentially normal. Simple bilateral renal cysts are identified measuring up to 1.4 cm diameter and stable. Evidence for right hemicolectomy. No bowel obstruction or acute inflammatory process. Few sigmoid diverticula noted without acute diverticulitis. Pelvis demonstrates normal bladder and age-appropriate uterus/adnexa. No pelvic fluid or ascites. No free air. No adenopathy. No obvious abdominopelvic mass lesion. Fat containing supraumbilical hernia measuring approximately 3.8 cm is unchanged. Atherosclerotic disease to the aorta and vasculature without aneurysm or dissection. Musculoskeletal structures demonstrate age-related degenerative changes without acute focal abnormality. Impression: No acute abdominopelvic pathology. No evidence for recurrence or metastatic disease. Chronic stable changes including renal cysts and supraumbilical fat-containing hernia. Electronically Signed by Pedro Weiss MD 07/19/2019 11:06 A
== END ==
LOC: M RAD 08:53
PROVIDERS: ATTEND Internal Medicine Hematology & Oncology
DX: C18.0 Malignant neoplasm of cecum (principal)
CPT/HCPCS: 71260; 74178; Q9963; Q9967

== ENCOUNTER → 2019-08-07 | Outpatient (REF) | payer MEDICARE, OTHER ==
[~2019-08-07] MED LIST changes: +BREO1INH INH; -GASTROGRAFIN SOLUTION 30ML (Q9963) As Ordered ONE; -ISOVUE-370 76% 100ML VIAL (Q9967) As Ordered ONE; +MUCI600T31 PO; +TYLETAB14 PO
== END ==
LOC: M LAB REF 14:27
PROVIDERS: ATTEND Otolaryngology
DX: L72.3 Sebaceous cyst (principal)

== ENCOUNTER 2019-08-09 09:35 | Day surgery (SDC) | payer MEDICARE, OTHER ==
[~2019-08-09] VITALS: Ht 162.6 cm; Wt 72.6 kg
[2019-08-09] MEDS ORDERED: propofoL 200 MG/20 ML VIAL As Ordered ONE ×2 (11:29→12:26)
[2019-08-09] MEDS ORDERED: ROCURONIUM BROMIDE 50 MG/5 ML VIAL As Ordered ONE (11:29)
[2019-08-09] MEDS ORDERED: fentaNYL 100 MCG/2 ML INJECTION (J3010) As Ordered ONE ×2 (11:29→12:29)
[2019-08-09] MEDS ORDERED: LIDOCAINE 2% INJ 100 MG/5 ML SDV (FOR ANES.) As Ordered ONE (11:29)
[2019-08-09] MEDS ORDERED: MIDAZOLAM INJ 2 MG/2 ML VIAL (J2250) As Ordered ONE (11:29)
[2019-08-09] MEDS ORDERED: ALBUTEROL SULFATE 2.5 MG/0.5 ML INH NEB SOLN INH ONE (12:00)
[2019-08-09] MEDS ORDERED: LR 1,000 ML IV ONE (12:00)
[2019-08-09] MEDS ORDERED: CETACAINE SPRAY 5GM As Ordered ONE (12:20)
[2019-08-09] MEDS ORDERED: dexameTHASONE 4 MG/ML 1ML VIAL (J1100) As Ordered ONE (12:29)
[2019-08-09] MEDS ORDERED: ONDANSETRON 4MG/2ML VIAL (J2405) As Ordered ONE (12:29)
[2019-08-09] MEDS ORDERED: GLYCOPYRROLATE INJ 0.2 MG/ML 2 ML VIAL As Ordered ONE (12:58)
[2019-08-09] MEDS ORDERED: SUGAMMADEX SODIUM 500 MG/5 ML VIAL (BRIDION) As Ordered ONE (13:03)
[2019-08-09] MEDS ORDERED: fentaNYL 100 MCG/2 ML INJECTION (J3010) IV PRN (14:00)
[2019-08-09] MEDS ORDERED: LR 1,000 ML IV SCH ×2 (14:00→15:01)
[2019-08-09] MEDS ORDERED: METOCLOPRAMIDE INJ 10MG/2ML VIAL (J2765) IV PRN (14:00)
[2019-08-09] MEDS ORDERED: ONDANSETRON 4MG/2ML VIAL (J2405) IV PRN (14:00)
[2019-08-09 14:50] VITALS: BP 105/56
--- NOTE | 2019-08-10 11:34 | RO ---
DATE OF PROCEDURE: 08/09/2019 PREPROCEDURE DIAGNOSIS: Lesion of right vocal cord. POSTPROCEDURE DIAGNOSIS: Lesion of right vocal cord. PROCEDURE: Excision of lesion on the right vocal cord with suspension laryngoscopy, benign tumor. SURGEON: Rosa Maria Almaguer MD FRONT LINE SUPERVISOR: ANESTHESIA: General. DESCRIPTION OF PROCEDURE: Under general anesthesia, the patient was draped in the usual manner. I inserted the laryngoscope with an alloplast guard for the mouth. Once the laryngoscope was in place, then I hooked up the jet ventilation and ventilated the patient that way. I then put on the suspension apparatus, fixed that and then brought in the microscope. There was a lesion on the mid portion of the vocal cord, which covered the mid one-half of the vocal cord on that side. I grabbed the lesion with the forceps and then using the scissors I cut it free from the vocal cord. There was no lesion left. The patient tolerated the procedure well. There was very little bleeding. The patient was extubated and transferred to the recovery room in excellent condition.
== END 2019-08-09 15:00 | disposition home or self-care (01) ==
LOC: M SDC 09:35
PROVIDERS: ATTEND Otolaryngology
DX: D14.1 Benign neoplasm of larynx (principal); J44.9 Chronic obstructive pulmonary disease, unspecified; F17.218 Nicotine dependence, cigarettes, with other nicotine-induced disorders; Z92.21 Personal history of antineoplastic chemotherapy; Z85.09 Personal history of malignant neoplasm of other digestive organs; Z79.899 Other long term (current) drug therapy
CPT/HCPCS: 31540; 88305; J1100; J2250; J2405; J3010

== ENCOUNTER → 2019-09-15 | Outpatient (CLI) | payer MEDICARE ==
--- NOTE | 2019-09-15 14:40 | REP ---
REASON: Vocal cord disease. COMPARISON: 07/19/2019 The mediastinum and pulmonary jessie are unchanged. There is no evidence of a mass or adenopathy. There are no pleural or pericardial effusions. There is no change in the imaged osseous structures. Evaluation of the lung saleem show them to be stable from the prior exam. No significant abnormal nodules, masses, or opacities have developed. Mild chronic changes are again seen in the lung apical regions. IMPRESSION: No evidence of acute disease or significant change from the prior exam. Electronically Signed by Favio Lundberg DO 09/15/2019 04:17 P
== END ==
LOC: M RAD 12:07
PROVIDERS: ATTEND Internal Medicine Pulmonary Disease
DX: J38.3 Other diseases of vocal cords (principal)

== ENCOUNTER → 2019-09-21 | Outpatient (REF) | payer MEDICARE | LOC: M LAB REF 16:45 | PROVIDERS: ATTEND Internal Medicine Pulmonary Disease | DX: R05 Cough (principal) ==

== ENCOUNTER → 2019-10-17 | Outpatient (CLI) | payer MEDICARE ==
[~2019-10-17] MED LIST changes: +E-Z-GAS II EFFERVESCENT PACKET (SODIUM BICARB./CITRIC ACID/SIMETHICONE) As Ordered ONE; +E-Z-HD 98% w/w 340GM SUSP BTL As Ordered ONE; +E-Z-PAQUE 96% w/w SUSP 176GM BTL As Ordered ONE
--- NOTE | 2019-10-17 16:59 | REP ---
Esophagram The procedure was performed under the direct supervision of Dr. Trevizo. The images were reviewed with Dr. Trevizo. A single view PA chest x-ray is submitted as a architectural practice manager film. There is no change compared to a previous chest x-ray performed on 04/10/2019. Liquid barium and gas producing granules were given in the erect position as well as liquid barium in the prone oblique positions in order to perform a double contrast esophagram examination. The oral and pharyngeal stages of deglutition are unremarkable. Esophageal transport is prompt and efficient and there is no esophagitis, stricture, mucosal ring or hiatal hernia. Gastroesophageal reflux is not demonstrated on this examination. Impression: Double contrast esophagram examination within normal limits. 0.6 minutes of fluoro time was utilized for this procedure. Electronically Signed by BARBIE Bell 10/17/2019 04:33 P Electronically Signed by Spencer Trevizo MD 10/17/2019 04:49 P
== END ==
LOC: M RAD 08:49
PROVIDERS: ATTEND Otolaryngology
DX: K21.9 Gastro-esophageal reflux disease without esophagitis (principal)

== ENCOUNTER → 2019-11-09 | Outpatient (CLI) | payer MEDICARE ==
[~2019-11-09] MED LIST changes: +ALBU83IN NEB; -E-Z-GAS II EFFERVESCENT PACKET (SODIUM BICARB./CITRIC ACID/SIMETHICONE) As Ordered ONE; -E-Z-HD 98% w/w 340GM SUSP BTL As Ordered ONE; -E-Z-PAQUE 96% w/w SUSP 176GM BTL As Ordered ONE; +IPRA0.00 IN; +OMEP40CA97 PO; +VITAD1000T PO; +ZINC1TAB2 PO
--- NOTE | 2019-11-09 16:13 | REP ---
Two-view chest: 11/09/2019. Indication: Dyspnea. Comparison: 04/10/2019. Findings: The lungs are clear. There is no pleural effusion or pneumothorax. Hyperinflation is present. The cardiac silhouette is unremarkable. Impression: Clear lungs. Electronically Signed by Aurelio Schmidt DO 11/09/2019 04:04 P
[2019-11-10 16:13] LABS: BASO # 0.1 10^3/uL (0.0-0.2); BASO % 1.4 % (0.0-1.0); EOS # 0.2 10^3/uL (0.0-0.5); EOS % 2.6 % (0.0-3.0); HEMATOCRIT 48.3 % (36.0-47.0); HEMOGLOBIN 15.6 g/dl (12.0-15.5); LYMPH % 32.2 % (24.0-44.0); MEAN CORPUSCULAR HEMOGLOBIN 31.1 pg (27.0-33.0); MEAN CORPUSCULAR HGB CONC 32.3 g/dl (32.0-36.5); MEAN CORPUSCULAR VOLUME 96.2 fl (80.0-96.0); MONO # 0.5 10^3/uL (0.0-0.8); MONO % 7.2 % (0.0-5.0); NEUTROPHILS # 3.5 10^3/uL (1.5-8.5); NEUTROPHILS % 56.4 % (36.0-66.0); PLATELET COUNT, AUTOMATED 235 10^3/uL (150-450); RED BLOOD COUNT 5.02 10^6/uL (4.00-5.40); WHITE BLOOD COUNT 6.2 10^3/uL (4.0-10.0)
[2019-11-10 17:01] LABS: ALBUMIN 3.5 GM/DL (3.2-5.2); ALT/SGPT 22 U/L (12-78); BILIRUBIN,TOTAL 0.7 MG/DL (0.2-1.0); BLOOD UREA NITROGEN 13 MG/DL (7-18); CALCIUM LEVEL 9.1 MG/DL (8.8-10.2); CARBON DIOXIDE LEVEL 27 MEQ/L (21-32); CHLORIDE LEVEL 111 MEQ/L (98-107); CHOLESTEROL LEVEL 221 MG/DL (<200); CHOLESTEROL RISK RATIO 2.351 (<5); CREATININE FOR GFR 0.92 MG/DL (0.55-1.30); GLOMERULAR FILTRATION RATE > 60.0 (>39); GLUCOSE, FASTING 102 MG/DL (70-100); HDL CHOLESTEROL 94 MG/DL (>40); LDL CHOLESTEROL 98 MG/DL (<100); NON-HDL-C 127 MG/DL; POTASSIUM SERUM 4.1 MEQ/L (3.5-5.1); SODIUM LEVEL 144 MEQ/L (136-145); THYROID STIMULATING HORMONE 0.881 uIU/ML (0.358-3.740); TOTAL PROTEIN 6.8 GM/DL (6.4-8.2); TRIGLYCERIDES LEVEL 146 MG/DL (<150)
[2019-11-10 17:47] LABS: HEMOGLOBIN A1c 5.9 %
== END ==
LOC: M LRY 14:34
PROVIDERS: ATTEND Nurse Practitioner Adult Health
DX: E78.00 Pure hypercholesterolemia, unspecified (principal); R49.0 Dysphonia; E83.42 Hypomagnesemia; E87.6 Hypokalemia; Z79.899 Other long term (current) drug therapy; J44.9 Chronic obstructive pulmonary disease, unspecified

== ENCOUNTER → 2019-11-17 | Outpatient (CLI) | payer MEDICARE ==
[~2019-11-17] MED LIST changes: +ACET-653; +AZIT-12 PO; +D31000TA2 PO; +GABA-282 PO; +KETO10TAB PO; +PROAAER10 INH; +SYMB80INH INH; -VITAD1000T PO
== END ==
LOC: M LABSMTC 10:07
PROVIDERS: ATTEND Anesthesiology
DX: Z01.818 Encounter for other preprocedural examination (principal); Z11.59 Encounter for screening for other viral diseases
CPT/HCPCS: C9803; U0003

== ENCOUNTER 2019-11-20 08:24 | Day surgery (SDC) | payer MEDICARE ==
[~2019-11-20] VITALS: Ht 162.6 cm; Wt 74.8 kg
[~2019-11-20 08:24] MED LIST changes: -ACET-653; -ALBU83IN NEB; -AZIT-12 PO; -GABA-282 PO; -IPRA0.00 IN; -KETO10TAB PO; +LR 1,000 ML IV ONE; -OMEP40CA97 PO; -PROAAER10 INH; +SUGAMMADEX SODIUM 500 MG/5 ML VIAL (BRIDION) As Ordered ONE; -SYMB80INH INH
[2019-11-20] MEDS ORDERED: IPRA0.00 IN (09:05)
[2019-11-20] MEDS ORDERED: OMEP40CA97 PO (09:05)
[2019-11-20] MEDS ORDERED: BREO1INH INH (09:05)
[2019-11-20] MEDS ORDERED: ALBU83IN NEB (09:05)
[2019-11-20] MEDS ORDERED: ALBUTEROL SULFATE 2.5 MG/0.5 ML INH NEB SOLN INH ONE (09:15)
[2019-11-20] MEDS ORDERED: LIDOCAINE 2% 100MG/5ML SDV (FOR ANES.) As Ordered ONE (10:16)
[2019-11-20] MEDS ORDERED: ONDANSETRON 4MG/2ML VIAL As Ordered ONE (10:17)
[2019-11-20] MEDS ORDERED: fentaNYL 100 MCG/2 ML INJECTION (J3010) As Ordered ONE (10:17)
[2019-11-20] MEDS ORDERED: MIDAZOLAM INJ 2MG/2ML VIAL (J2250 PER 1MG) As Ordered ONE (10:17)
[2019-11-20] MEDS ORDERED: dexameTHASONE 4 MG/ML 1ML VIAL (J1100 PER 1MG) As Ordered ONE (10:17)
[2019-11-20] MEDS ORDERED: propofoL 200 MG/20 ML VIAL As Ordered ONE (10:17)
[2019-11-20] MEDS ORDERED: CETACAINE SPRAY 5GM As Ordered ONE (10:47)
[2019-11-20] MEDS ORDERED: ROCURONIUM BROMIDE 50 MG/5 ML VIAL As Ordered ONE (10:51)
[2019-11-20] MEDS ORDERED: LR 1,000 ML IV SCH ×2 (12:15)
[2019-11-20] MEDS ORDERED: fentaNYL 100 MCG/2 ML INJECTION (J3010) IV PRN (12:15)
[2019-11-20] MEDS ORDERED: PERCOCET 5MG/325MG TAB PO PRN (12:15)
[2019-11-20] MEDS ORDERED: ONDANSETRON 4MG/2ML VIAL IV PRN (12:15)
[2019-11-20] MEDS ORDERED: ACETAMINOPHEN 500 MG TAB As Ordered ONE (12:58)
[2019-11-20] MEDS ORDERED: ACETAMINOPHEN 500 MG TAB PO ONE (13:00)
[2019-11-20 14:08] VITALS: BP 105/54
--- NOTE | 2019-11-22 11:22 | RO ---
DATE OF PROCEDURE: 11/20/2019 PREOPERATIVE DIAGNOSIS: Lesion in right vocal cord. POSTOPERATIVE DIAGNOSIS: Lesion in right vocal cord. OPERATIVE PROCEDURE: Direct laryngoscopy and biopsy and CO2 laser excision of lesion in right vocal cord. SURGEON: Lisandro Almaguer MD STOREKEEPER HELPER: ANESTHESIA: DESCRIPTION OF PROCEDURE: The patient was intubated. I used a jet ventilation. The laryngoscope was inserted. I used a guard for the upper alveolus. The guard was Aquaplast. Then what I did was I inserted the laryngoscope and then advanced it down to the larynx. I positioned ___the laryngoscope and used a suspension apparatus. I then wrapped the face with wet gauze to protect it from the laser. I then identified the lesion in the anterior one-half of vocal cord. I used forceps and grabbed the whole of the mucosal lesion. I excised it with scissors. I used this for a biopsy. Then the remaining area was then treated with the CO2 laser. I used the CO2 laser setting continuous at 8 ventura. I vaporized the mucosa in this area until there was no evidence of any further leukoplakia or abnormal mucosa. The patient tolerated the procedure well. The laryngoscope was then removed, and the patient then was woken up and transferred to the recovery room in excellent condition. GILLIAN
[2020-04-01] MEDS ORDERED: GABA-282 PO (12:56)
== END 2019-11-20 14:10 | disposition home or self-care (01) ==
LOC: M SDC 08:24
PROVIDERS: ATTEND Otolaryngology
DX: J38.3 Other diseases of vocal cords (principal); K21.9 Gastro-esophageal reflux disease without esophagitis; Z79.899 Other long term (current) drug therapy; Z85.038 Personal history of other malignant neoplasm of large intestine; Z92.21 Personal history of antineoplastic chemotherapy; Z88.8 Allergy status to other drugs, medicaments and biological substances
CPT/HCPCS: 31540; 88305; J1100; J2250; J2405; J3010

== ENCOUNTER → 2019-12-08 | Outpatient (CLI) | payer MEDICARE ==
[~2019-12-08] MED LIST changes: +ACET-653; +ALBU83IN NEB; +AZIT-12 PO; +GABA-843 PO; +IPRA0.00 IN; +KETO10TAB PO; -LR 1,000 ML IV ONE; +OMEP40CA97 PO; +PROAAER10 INH; -SUGAMMADEX SODIUM 500 MG/5 ML VIAL (BRIDION) As Ordered ONE; +SYMB80INH INH
== END ==
LOC: M LABSMTC 11:11
PROVIDERS: ATTEND Anesthesiology
DX: Z01.818 Encounter for other preprocedural examination (principal); Z11.59 Encounter for screening for other viral diseases
CPT/HCPCS: C9803; U0003

== ENCOUNTER 2019-12-11 06:00 | Inpatient (IN) | payer MEDICARE ==
[2019-12-11] VITALS (8 sets, daily range): BP systolic 123–140; BP diastolic 56–68
[~2019-12-11] VITALS: Ht 162.6 cm; Wt 75.7 kg
[~2019-12-11 06:00] MED LIST changes: -ACET-653; -AZIT-12 PO; -D31000TA2 PO; -GABA-843 PO; -KETO10TAB PO; +LIDOCAINE 1% MDV 20ML VIAL SQ PRN; -PROAAER10 INH; -SYMB80INH INH; +VITAD1000T PO
[2019-12-11] MEDS ORDERED: ceFAZolin SOD 2 GM in IV 1 EA IV ONE (07:00)
[2019-12-11] MEDS ORDERED: LR 1,000 ML IV ONE (07:00)
[2019-12-11] MEDS ORDERED: fentaNYL 250 MCG/5 ML INJECTION (J3010) As Ordered ONE (07:05)
[2019-12-11] MEDS ORDERED: MIDAZOLAM INJ 2MG/2ML VIAL (J2250 PER 1MG) As Ordered ONE (07:05)
[2019-12-11] MEDS ORDERED: ROCURONIUM BROMIDE 50 MG/5 ML VIAL As Ordered ONE ×3 (07:06→11:00)
[2019-12-11] MEDS ORDERED: dexameTHASONE 4 MG/ML 1ML VIAL (J1100 PER 1MG) As Ordered ONE (07:06)
[2019-12-11] MEDS ORDERED: LIDOCAINE 2% 100MG/5ML SDV (FOR ANES.) As Ordered ONE (07:06)
[2019-12-11] MEDS ORDERED: propofoL 200 MG/20 ML VIAL As Ordered ONE (07:06)
[2019-12-11] MEDS ORDERED: ONDANSETRON 4MG/2ML VIAL As Ordered ONE (07:06)
[2019-12-11] MEDS ORDERED: BUPIVACAINE HCL 0.25% 10ML VIAL As Ordered ONE (07:17)
[2019-12-11] MEDS ORDERED: BUPIVACAINE HCL 0.25% 30ML VIAL As Ordered ONE (07:17)
[2019-12-11] MEDS ORDERED: LIDOCAINE 1% SDV 30ML VIAL As Ordered ONE (07:17)
[2019-12-11] MEDS ORDERED: BUPIVACAINE LIPOSOME/PF 1.3% 20ML VIAL (13.3MG/ML)(EXPAREL)(C9290 PER1MG) As Ordered ONE (07:18)
[2019-12-11] MEDS ORDERED: ACETAMINOPHEN 1000MG 100ML IV BTL (OFIRMEV) (J0131 PER 10MG) As Ordered ONE (08:05)
[2019-12-11] MEDS ORDERED: ePHEDrine SULFATE 25 MG/5 ML(5MG/ML) SYRINGE As Ordered ONE (08:36)
[2019-12-11] MEDS ORDERED: SUGAMMADEX SODIUM 500 MG/5 ML VIAL (BRIDION) As Ordered ONE (08:37)
[2019-12-11] MEDS ORDERED: ceFAZolin 2 GM/D5W 50 ML IV BAG (J0690 PER 500MG) As Ordered ONE (14:31)
[2019-12-11] MEDS ORDERED: KETOROLAC 30 MG/ML 1ML VIAL IV PRN (15:15)
[2019-12-11] MEDS ORDERED: ONDANSETRON 4MG/2ML VIAL IV PRN ×2 (15:15→15:30)
[2019-12-11] MEDS ORDERED: PERCOCET 5MG/325MG TAB PO PRN ×2 (15:15)
[2019-12-11] MEDS ORDERED: MORPHINE 2 MG/ML 1ML VIAL (J2270) IV PRN (15:15)
[2019-12-11] MEDS: fentaNYL 100 MCG/2 ML INJECTION (J3010) IV PRN ×4 (15:16→15:58)
[2019-12-11] MEDS ORDERED: ALBUTEROL SULFATE 2.5 MG/0.5 ML INH NEB SOLN As Ordered ONE (15:26)
[2019-12-11] MEDS ORDERED: LR 1,000 ML IV SCH (15:30)
[2019-12-11] MEDS ORDERED: ALBUTEROL SULFATE 2.5 MG/0.5 ML INH NEB SOLN INH SCH (15:30)
[2019-12-11] MEDS ORDERED: METOCLOPRAMIDE INJ 10MG/2ML VIAL (J2765 PER 1) IV PRN (15:30)
[2019-12-11] MEDS ORDERED: MEPERIDINE INJ 25 MG/ML VIAL (J2175) IV PRN (15:30)
[2019-12-11] MEDS ORDERED: oxyCODONE 5MG TAB PO PRN (15:30)
[2019-12-11] MEDS: SENOKOT S TAB PO SCH (21:59)
[2019-12-11] MEDS: KETOROLAC 30 MG/ML 1ML VIAL IV SCH (22:00)
[2019-12-11] MEDS: LR 1,000 ML IV SCH (23:00)
[2019-12-12 02:00] VITALS: BP 122/57
[2019-12-12] MEDS: KETOROLAC 30 MG/ML 1ML VIAL IV SCH ×4 (04:15→21:39)
[2019-12-12 06:00] VITALS: BP 123/56
[2019-12-12 06:27] LABS: BASO % 0.3 % (0.0-1.0); EOS % 0.3 % (0.0-3.0); HEMATOCRIT 42.4 % (36.0-47.0); HEMOGLOBIN 13.6 g/dl (12.0-15.5); LYMPH # 1.4 10^3/uL (1.5-5.0); LYMPH % 17.8 % (24.0-44.0); MEAN CORPUSCULAR HEMOGLOBIN 30.9 pg (27.0-33.0); MEAN CORPUSCULAR HGB CONC 32.1 g/dl (32.0-36.5); MEAN CORPUSCULAR VOLUME 96.4 fl (80.0-96.0); MONO # 0.7 10^3/uL (0.0-0.8); MONO % 9.4 % (0.0-5.0); NEUTROPHILS # 5.5 10^3/uL (1.5-8.5); NEUTROPHILS % 72.1 % (36.0-66.0); PLATELET COUNT, AUTOMATED 194 10^3/uL (150-450); WHITE BLOOD COUNT 7.6 10^3/uL (4.0-10.0)
[2019-12-12 06:43] LABS: BLOOD UREA NITROGEN 18 MG/DL (7-18); CALCIUM LEVEL 8.4 MG/DL (8.8-10.2); CARBON DIOXIDE LEVEL 29 MEQ/L (21-32); CHLORIDE LEVEL 107 MEQ/L (98-107); CREATININE FOR GFR 0.88 MG/DL (0.55-1.30); GLOMERULAR FILTRATION RATE > 60.0 (>39); GLUCOSE, FASTING 94 MG/DL (70-100); POTASSIUM SERUM 4.2 MEQ/L (3.5-5.1); SODIUM LEVEL 141 MEQ/L (136-145)
[2019-12-12] MEDS: IPRATROPIUM 0.5MG/ALBUTEROL 2.5MG INH SOL UD 3ML (DUONEB) NEB SCH ×3 (08:34→20:13)
--- NOTE | 2019-12-12 09:57 | ROOPDOC ---
[facility] Report Of Operation Report of Operation DATE OF PROCEDURE: 12/11/19 PREPROCEDURE DIAGNOSES: incisional hernia (8x6 cms, multiple chinese cheese appearance and diastatic abdominal wall. POSTPROCEDURE DIAGNOSES: same. PROCEDURE: Robotic assisted laparoscopic [place] Stoppa Repair and bilateral transversus abdominis release (bilateral myofascial release) with 30x22 cm mesh reinforcement at the retromuscular layer. SURGEON: Michael Flood MD LEVEL GLASS FORMING MACHINE OPERATOR: Mae Christy NP ANESTHESIA: General Anesthesia. ESTIMATED BLOOD LOSS: Approximately 40 mL. COMPLICATIONS: none. REMARKS: . PROCEDURE NOTE: . DESCRIPTION OF PROCEDURE: Patient was given a dose of 2 g Ancef IV preoperatively for wound prophylaxis. He was brought to the operating room and placed supine on the table. Compression boots and teds were placed on both lower extremities for DVT prophylaxis. General endotracheal anesthesia was administered without any complication. Her left arm was tucked, the right arm placed on an arm board. All bony prominences were padded. A Cr catheter was placed. The abdomen was prepped from xiphoid to pubis and table to table with chlorhexidine. The patient was draped in the usual sterile fashion.Timeout were performed using both preinduction and pre-incision safety checklist to verify correct patient, procedure site and additional clinical information prior to beginning the procedure. I used the ultrasound to externally marked the linea semilunaris and both sides as well as the margins of the hernia. Under ultrasound guidance ALSO, anesthesia placed a transversus abdominis plane block using a mixture of Exparel, 1/4% Marcaine and saline on both sides. My original plan was to do eTEP access to the retromuscular space to perform a [place] Stoppa type repair. I tried to enter the retro-muscular space with a left upper quadrant area. A small skin incision was created and the subcutaneous tissue dissected with hemostats. Using the Kii Fios 5 mm port, under direct laparoscopic vision I tunneled through to what I thought was the retro-muscular space and started creating the needed space with blunt dissection. 2 other ports were placed about 8-10 cm apart along the left side of the abdomen. The VeriTrani robot saw was docked and the instruments place. I then scrubbed and took control of the camera and instruments at the surgeon's console. While continuing the dissection 20 thought was the retro-muscular space I noticed that the typical appearance wasn't there and they realized that was actually subcutaneous and not retro-muscular in my position. Thus I scrubbed back in. The subcutaneous space was deflated. Again using the 5 mm high Kii Fios port I entered the left retro-muscular plane and again bluntly dissected to create space for my 2 other ports which were likewise placed. Again the tower was driven in place and the ports docked onto the robot. The instrument's were placed back and I again went to the surgeon's console. I continued the dissection of the left retro-muscular space but unfortunately there was a big Mustapha on the posterior sheath right next to my a middle port which collapsed of the left retro-muscular space. Thus at this point I abandoned the eTEP approach. I scrubbed back in and placed my ports intra-abdominally. Intra-abdominal insufflation and started to pressure 15 mmHg. Again the trochars were docked to the robot and instruments placed. I returned to the surgeon's console. On diagnostic laparoscopy, there is a loop of the transverse colon that was attached to the inferior portion of the hernia. There is a large hernia made up of 3 or 4 Serbian cheese confluent hernia cavity. There is also a wide diastatic midline which was thinned out. The falciform ligament was taken down and I dissected preperitoneal only to the margins of the hernia defect. This was opened up a centimeter beyond the margin of the hernia defect to enter the right retro-muscular space. The posterior sheath was then dissected free off the rectus muscle to the right semilunar line. At this point I asked my welder assistant to place 3 trochars along the right side to the right of the semilunar line to avoid any further disruption of the posterior sheath. The robotic tower was turned around and the right-sided ports were docked to the robot. I then proceeded dissecting the left posterior sheath of the left retro-muscular space which is mostly dissected free now. As mentioned there is a large posterior sheath defect opposite the middle port. The ports were drawn back to the retro- muscular space. The left posterior sheath was dissected to the level of the left semilunar line demarcated by the neurovascular bundles coursing from the posterior sheath towards the rectus muscles. At this point I evaluated my posterior sheath which clearly would need some further myofascial release to allow the posterior sheath to come together. Last a started a top-down approach posterior component separation or transversus abdominis release. The posterior lamella of the internal oblique was opened up starting at the left upper quadrant area going down towards the left lower quadrant area medial to the neurovascular bundles on that side. This exposed the transversus abdominis muscle. The transversus abdominis muscle was divided to enter the pre- transversalis plane and laterally the preperitoneal plane. Lower down towards the arcuate line the fibrous portion of the transversus abdominis muscle without this likewise divided and from the peritoneum. The round ligament was prior to lysed and divided away from the internal opening and the bronchus was entered. Medial dissection was continued pre-peritoneally bringing down the bladder to the level of the Erwin's ligament. Advancement of the posterior sheath/peritoneum was tied until this was draping on top of the bowel. The peritoneal and posterior sheath defects that was previously identified was repaired using 3-0 Vicryl which includes the defects created by the trochars entry. The arms of the robot was then Swallen back once more and the left-sided trochars were docked to the robot. Unfortunately the posterior sheath does not reach the left side without tension thus transversus abdominis release was also performed in a similar fashion on the right side. Once this was done the posterior sheath was easily reaching one another. The posterior sheath was repaired using 30V LOC in a running fashion. Smaller posterior sheath defects was repaired with 3-0 Vicryl in a mattress fashion. After repairing the posterior sheath I turned my attention over the anterior sheath hernia defect as well as a diastases. This was sutured together and the linea elbow was re-created and diastases plicated using 2 running sutures of 0V LOC 180 18 inches. The hernia sac was plicated together to collapse the space to prevent seroma formation. Once this was done attention was placed for proper hemostasis and once satisfied I measured my space. I scrubbed back in and that shows a 30 x 30 cm plane midway polypropylene mesh. I fashioned off a 30 x 25 cm mesh with slight rounding off the corners to accommodate the patient's body habitus. This was rolled and placed retro-muscularly. At this point we switched to laparoscopy. The mesh was unrolled to the floor of the retro-muscular space. Excess mesh on the left side was trimmed to accommodate the patient's body habitus. I estimate i.e. have about a 30 x 22 cm mesh at the end with slight tapering off at the upper and lower quadrants. Once the mesh was adequately positioned to seal glue was placed to glue the mesh to the floor of the retro-muscular space likewise for hemostasis. A 19 Vincent drain was threaded and laid on top of the mesh coming out of the left lower quadrant port. The retro-muscular space was then deflated all ports were removed. All port site incisions was closed with 4-0 Monocryl in subcutaneous fashion. Dermabond dressings were placed. The drain was secured into the skin with 2-0 silk. Patient was informed they awakened and extubated and brought to recovery room in stable condition. MICHAEL FLOOD MD Dec 12, 2019 09:57
[2019-12-12 10:00] VITALS: BP 115/53
[2019-12-12] MEDS: SENOKOT S TAB PO SCH ×2 (10:01→21:38)
[2019-12-12] MEDS: ENOXAPARIN 40MG/0.4ML SYRINGE (J1650 PER 10MG) SC SCH (10:01)
[2019-12-12] MEDS: LR 1,000 ML IV SCH ×2 (10:03→15:28)
--- NOTE | 2019-12-12 10:17 | IPNPDOC ---
Text Note Date of Service The patient was seen on 12/12/19. NOTE Patient had a complex abdominal hernia repair done yesterday laparoscopically, robotically. She was admitted overnight for pain control and observation. She had some rhonchorous breathing overnight and is putting a lot of sputum. She is a 1 pack per day smoker chronically. She still feels slightly short of breath and is still putting whitish sputum. Pain is much better controlled this morning. She has been afebrile. Vital signs have been reviewed. She is afebrile and nontachycardic. Her O2 saturations are between 97 and 99% at 2 L O2 nasal cannula I/O Her [place]ont drain put out 135 mL some of bloody fluid yesterday and 60 mL's during the last shift On examination She is laying relatively flat on the bed, still has some audible rhonchorous breathing though looks more comfortable than she was immediately postoperatively. She is wearing a nasal cannula. No jugular venous distention. Heart rate and rhythm are regular without murmurs Lungs sounds are slightly labored but clear to auscultation. Respiratory rates in the 20s Abdomen is soft, minimally distended. She has 6 port sites which are clean dry and intact. She has 1 drain site which is containing serous sanguinous fluid No significant lower extremity edema Her labs were reviewed and satisfactory. Impression She is postop day 1 following complex abdominal wall repair/reconstruction with bilateral transversus abdominous release. Her pain control seems to be better. She is also on scheduled doses of Toradol IV and Percocets. She is not taking any morphine She still has some slight labored breathing and is putting out thick whitish sputum. I will put her on scheduled nebulizations. She is a smoker. I'll also get a chest x-ray. If her not able to improve her breathing, may need hospitalist consult no don't think she has any infection at this point. Depending on her respiratory status, may need to stay in the hospital for another day or so. VS,Fishbone, I+O VS, Fishbone, I+O Laboratory Tests 12/12/19 05:47 Vital Signs Date Time Temp Pulse Resp B/P (MAP) Pulse Ox O2 Delivery O2 Flow Rate FiO2 12/12/19 06:00 98.5 87 18 123/56 (78) 97 Nasal Cannula 1.0 I&O- Last 24 Hours up to 6 AM 12/12/19 06:00 Intake Total 3075 ml Output Total 955 ml Balance 2120 ml BEREKET CLAYTON MD Dec 12, 2019 10:17
--- NOTE | 2019-12-12 11:15 | REP ---
Reason for today's exam is cough and dyspnea. COMPARISON: 11/09/2019. The technique utilized in obtaining the radiograph has magnified the cardiac silhouette and accentuated the interstitial markings. AP and lateral views were obtained. Significant subcutaneous emphysema has developed since the last exam. There is no significant change in the appearance of the lung saleem, although they are hypoexpanded compared to the prior exam which crowds the basilar vascularity. The pleural angles are sharp. The heart is not enlarged. There is no evidence of a pneumomediastinum or a pneumothorax. No acute patchy parenchymal opacities or pleural effusions have developed. There is no evidence of significant change involving the imaged osseous structures. IMPRESSION: Abnormal subcutaneous emphysema as described above, etiology uncertain. CT examination of the chest is recommended. Electronically Signed by Favio Lundberg DO 12/12/2019 11:41 A
[2019-12-12 14:00] VITALS: BP 133/61
--- NOTE | 2019-12-12 15:06 | IPNPDOC ---
Text Note Date of Service The patient was seen on 12/12/19. NOTE CXR reviewed. SubQ emphysema expected after her surgery and not a pathological finding. No CT chest exam needed. VS,Noebone, I+O VS, Fishbone, I+O Laboratory Tests 12/12/19 05:47 Vital Signs Date Time Temp Pulse Resp B/P (MAP) Pulse Ox O2 Delivery O2 Flow Rate FiO2 12/12/19 10:00 2.0 12/12/19 10:00 98.0 78 18 115/53 (73) 98 Nasal Cannula I&O- Last 24 Hours up to 6 AM 12/12/19 06:00 Intake Total 3075 ml Output Total 955 ml Balance 2120 ml BEREKET CLAYTON MD Dec 12, 2019 15:06
[2019-12-12 18:00] VITALS: BP 132/60
--- NOTE | 2019-12-12 18:57 | CR.PDOC ---
General Date of Consultation: Dec 12, 2019 Consultation REASON FOR CONSULTATION/CHIEF COMPLAINT: . HISTORY OF PRESENT ILLNESS: Patient is 69 years old female with past medical history of COPD, colon cancer was admitted to the hospital for abdominal ventral hernia repair. After surgery patient developed increased shortness of breath with increase sputum production. Patient stated that she has chronic cough, but after surgery she started feeling more short of breath and more whitish sputum production. Chest x-ray showed Significant subcutaneous emphysema ALLERGIES: Please see below. HOME MEDICATIONS: Please see below. PAST MEDICAL HISTORY: Right-sided colon cancer status post resection and chemotherapy PAST SURGICAL HISTORY: 1. Right hemicolectomy with reanastomosis. 2. Port placement and removal. FAMILY HISTORY: I personally Reviewed family history and found to not pertinent SOCIAL HISTORY: Patient admits to smoking 06/20 a day since she was 11 years old. She says she occasionally drinks homemade moonshine that a friend makes. She denies any illicit drugs including marijuana. She lives at home with her boyfriend and they do not have any cats, dogs, or birds. 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 She never worked in any other job that involves any harmful chemicals or dusts. REVIEW OF SYSTEMS: 10 point review system negative except as listed above PHYSICAL EXAMINATION: GENERAL APPEARANCE: Alert and oriented female HEENT: Normocephalic, atraumatic, anicteric sclera, posterior pharynx was nonerythematous, and moist mucous membranes. CARDIOVASCULAR: Regular rate and rhythm with a normal S1 and S2. No murmurs, rubs, or gallops were auscultated. LUNGS: Bilateral crackles with rhonchi ABDOMEN: Soft, nontender to palpation, with normoactive bowel sounds. MUSCULOSKELETAL: No swollen joints or tender areas. EXTREMITIES: No pretibial edema, radial and dorsalis pedis pulses equal bilaterally. NEUROLOGICAL: Cranial nerves IIXII intact bilaterally. LABORATORY DATA: Please see below. ASSESSMENT/PLAN: Patient is 69 years old female with past medical history of COPD, colon cancer was admitted to the hospital for abdominal ventral hernia repair. After surgery patient developed increased shortness of breath with increase sputum production. Patient stated that she has chronic cough, but after surgery she started feeling more short of breath and more whitish sputum production. Chest x-ray showed Significant subcutaneous emphysema Shortness of breath/COPD exacerbation Superimposed with possible atelectasis after surgery Incentive spirometry Inhalers Sputum culture subcutaneous emphysema Most likely iatrogenic after endotracheal intubation We'll proceed with CT scan Vital Signs/I&O Vital Signs Date Time Temp Pulse Resp B/P (MAP) Pulse Ox O2 Delivery O2 Flow Rate FiO2 12/12/19 18:00 98.2 78 18 132/60 (84) 95 Nasal Cannula 1.0 I&O- Last 24 Hours up to 6 AM 12/12/19 06:00 Intake Total 3075 ml Output Total 955 ml Balance 2120 ml Laboratory Data Labs 24H Laboratory Tests 2 12/12/19 05:47: Immature Granulocyte % (Auto) 0.1, Neutrophils (%) (Auto) 72.1H, Lymphocytes (%) (Auto) 17.8L, Monocytes (%) (Auto) 9.4H, Eosinophils (%) (Auto) 0.3, Basophils (%) (Auto) 0.3, Neutrophils # (Auto) 5.5, Lymphocytes # (Auto) 1.4L, Monocytes # (Auto) 0.7, Eosinophils # (Auto) 0.0, Basophils # (Auto) 0.0, Nucleated Red Blood Cells % (auto) 0.0, Anion Gap 5L, Glomerular Filtration Rate > 60.0, Calcium Level 8.4L CBC/BMP Laboratory Tests 12/12/19 05:47 Allergies Uncoded Allergies: ONE TYPE OF CHEMOTHERAPY (Allergy, Intermediate, left side of body rash., 12/11/19) unknown the name of the medication Home Medications No Active Prescriptions or Reported Meds QING ALCANTARA DO Dec 12, 2019 18:57
[2019-12-12] MEDS ORDERED: ALBUTEROL SULFATE 2.5 MG/0.5 ML INH NEB SOLN NEB PRN (19:00)
[2019-12-12] MEDS: SYMBICORT 80/4.5MCG INHALER 6GM INH SCH (21:00)
--- NOTE | 2019-12-12 21:10 | REPVR ---
PROCEDURE INFORMATION: Exam: CT Chest Without Contrast Exam date and time: 12/12/2019 7:51 PM Age: 69 years old Clinical indication: Condition or disease; Other: Subcutaneous emphysema TECHNIQUE: Imaging protocol: Computed tomography of the chest without contrast. 3D rendering: MIP and/or 3D reconstructed images were created by the technologist. Radiation optimization: All CT scans at this facility use at least one of these dose optimization techniques: automated exposure control; mA and/or kV adjustment per patient size (includes targeted exams where dose is matched to clinical indication); or iterative reconstruction. COMPARISON: CT Chest without contrast 09/15/2019 12:19 PM FINDINGS: Lungs: There is moderate consolidation of lung at the left lung base consistent with atelectasis and pneumonia. There is also mild atelectasis and pneumonia at the right lung base. Pleural space: There is no evidence of pneumothorax. Heart: Unremarkable. No cardiomegaly. No pericardial effusion. Mediastinal space: There is a small amount pneumomediastinum along the arch of the aorta. Aorta: There is also calcification along the margin of the aorta. Lymph nodes: Unremarkable. No enlarged lymph nodes. Liver: Normal appearing liver. Spleen: Normal appearing spleen. Bones/joints: Unremarkable. No acute fracture. Soft tissues: There is massive subcutaneous edema within the neck shoulders and thorax. This extends through the subcutaneous layer including the right and left breast and along the ribs and flank to the level of the diaphragm. IMPRESSION: 1. Massive bilateral subcutaneous emphysema neck, thorax and right and left flank. 2. Atelectasis and pneumonia greatest at the left lower lung. Electronically signed by: Terrance Ordoñez On 12/12/2019 21:09:36 PM
[2019-12-12 22:00] VITALS: BP 145/58
[2019-12-12] MEDS: PIPERACILLIN/TAZOBACTAM SOD 3.375 GM in D5W MINI-BAG PLUS 50 ML IV SCH (22:19)
[2019-12-12 22:55] LABS: BASO % 0.4 % (0.0-1.0); EOS # 0.1 10^3/uL (0.0-0.5); EOS % 1.5 % (0.0-3.0); HEMATOCRIT 39.1 % (36.0-47.0); HEMOGLOBIN 12.5 g/dl (12.0-15.5); LYMPH # 1.2 10^3/uL (1.5-5.0); LYMPH % 22.7 % (24.0-44.0); MONO # 0.5 10^3/uL (0.0-0.8); MONO % 9.3 % (0.0-5.0); NEUTROPHILS # 3.5 10^3/uL (1.5-8.5); NEUTROPHILS % 65.9 % (36.0-66.0); PLATELET COUNT, AUTOMATED 154 10^3/uL (150-450); RED BLOOD COUNT 4.03 10^6/uL (4.00-5.40); WHITE BLOOD COUNT 5.3 10^3/uL (4.0-10.0)
[2019-12-12 23:17] LABS: BLOOD UREA NITROGEN 13 MG/DL (7-18); CALCIUM LEVEL 8.4 MG/DL (8.8-10.2); CARBON DIOXIDE LEVEL 27 MEQ/L (21-32); CHLORIDE LEVEL 108 MEQ/L (98-107); CREATININE FOR GFR 0.86 MG/DL (0.55-1.30); GLOMERULAR FILTRATION RATE > 60.0 (>39); GLUCOSE, FASTING 99 MG/DL (70-100); POTASSIUM SERUM 3.9 MEQ/L (3.5-5.1); SODIUM LEVEL 140 MEQ/L (136-145)
[2019-12-13] MEDS: IPRATROPIUM 0.5MG/ALBUTEROL 2.5MG INH SOL UD 3ML (DUONEB) NEB SCH ×4 (01:55→19:35)
[2019-12-13 02:00] VITALS: BP 128/49
[2019-12-13] MEDS: PIPERACILLIN/TAZOBACTAM SOD 3.375 GM in D5W MINI-BAG PLUS 50 ML IV SCH ×4 (04:30→21:53)
[2019-12-13] MEDS: KETOROLAC 30 MG/ML 1ML VIAL IV SCH ×4 (04:30→21:53)
[2019-12-13 06:00] VITALS: BP 131/54
[2019-12-13] MEDS: SYMBICORT 80/4.5MCG INHALER 6GM INH SCH ×2 (08:02→19:35)
[2019-12-13] MEDS: SENOKOT S TAB PO SCH ×2 (09:59→20:00)
[2019-12-13 10:00] VITALS: BP 143/62
[2019-12-13] MEDS: ENOXAPARIN 40MG/0.4ML SYRINGE (J1650 PER 10MG) SC SCH (10:00)
[2019-12-13] MEDS: AZITHROMYCIN INJ 500 MG, VIAL MATE ADAPTER 1 EACH in D5W 250 ML IV SCH (10:00)
[2019-12-13] MEDS: NICOTINE 14 MG/24 HR TRANSDERMAL TD SCH (12:00)
--- NOTE | 2019-12-13 12:11 | IPNPDOC ---
Text Note Date of Service The patient was seen on 12/13/19. NOTE Patient looks much more comfortable today. She remains afebrile. She tells me she is able to get around the room and try to walk [place] day. She is on 1 L nasal cannula now. Still putting out some whitish sputum. With regards to her hernia repair she reports she is fairly comfortable. Drain remains in place putting out serosanguineous fluid. Vital signs stable On examination, patient laying on the bed with one pillow. Looks more comfortable. The nasal cannula has been turned off and she is satting about 94% at room air. No obvious fistula venous distention. Sounds are still harsh and bilaterally has some scattered rhonchi and coarse rales. Better. Intake on inhalation and no obvious use of extra diaphragmatic respiratory muscles. Abdomen is soft, nondistended. Port site incisions are clean dry and intact. Her drain is putting out serosanguineous fluid. 170 mL's recorded yesterday. 100 mL so far today. Nontender on palpation. Hernia repair is intact. No significant extremity edema Labs show no leukocytosis Impression She's now postop day 3 following complex abdominal wall repair with a large mesh. I asked the hospitalist to see her yesterday she was started on antibiotics. She has some bilateral infiltrates on chest CT. I'm not so worried about the sub cutaneous emphysema Smith is expected of an extra peritoneal approach which was performed on her. With the supportive measures of bronchial dilators as well as the antibiotics she seems to be getting better. I will discuss further care with the hospitalist and potentially send her home tomorrow. VS,Noebone, I+O VS, Fishbone, I+O Laboratory Tests 12/12/19 22:35 Vital Signs Date Time Temp Pulse Resp B/P (MAP) Pulse Ox O2 Delivery O2 Flow Rate FiO2 12/13/19 10:00 98.5 69 25 96 Nasal Cannula 1.0 12/13/19 06:00 131/54 (79) I&O- Last 24 Hours up to 6 AM 12/13/19 06:00 Intake Total 1989 ml Output Total 370 ml Balance 1620 ml BEREKET CLAYTON MD Dec 13, 2019 12:11
--- NOTE | 2019-12-13 12:31 | IPNPDOC ---
Text Note Date of Service The patient was seen on 12/13/19. NOTE Patient seen and examined this morning. States that she is doing fine. Has had her breakfast and tolerated well. PHYSICAL EXAMINATION: GENERAL APPEARANCE: Alert and oriented female HEENT: Normocephalic, atraumatic, anicteric sclera, posterior pharynx was nonerythematous, and moist mucous membranes. CARDIOVASCULAR: Regular rate and rhythm with a normal S1 and S2. No murmurs, rubs, or gallops were auscultated. LUNGS: Bilateral crackles with rhonchi ABDOMEN: Soft, Surgical dressing in place. GABINO drain in place which has drained around 60 mL candida fluid MUSCULOSKELETAL: No swollen joints or tender areas. EXTREMITIES: No pretibial edema, radial and dorsalis pedis pulses equal bilaterally. NEUROLOGICAL: Cranial nerves IIXII intact bilaterally. ASSESSMENT/PLAN: Patient is 69 years old female with past medical history of COPD, colon cancer was admitted to the hospital for abdominal ventral hernia repair. After surgery patient developed increased shortness of breath with increase sputum production. Patient stated that she has chronic cough, but after surgery she started feeling more short of breath and more whitish sputum production. Chest x-ray showed Significant subcutaneous emphysema 1. Shortness of breath/COPD exacerbation versus pneumonia. CAT scan showing possible interstitial pneumonia on bilateral lower lobes. The patient already is on Zosyn and azithromycin has been added. Sputum culture has been ordered. Incentive spirometry. Spoke with her regarding the importance of incentive spirometry. . Also, she has been a smoker and nicotine patches will be started. 2. Ventral hernia repair. As per surgery Pain controlled diet and activity as per surgery Continue inhalers If the sputum cultures are negative. The patient can be sent home on Levaquin 750 more days. VS,Fishbone, I+O VS, Fishbone, I+O Laboratory Tests 12/12/19 22:35 Vital Signs Date Time Temp Pulse Resp B/P (MAP) Pulse Ox O2 Delivery O2 Flow Rate FiO2 12/13/19 10:00 98.5 69 25 96 Nasal Cannula 1.0 12/13/19 06:00 131/54 (79) I&O- Last 24 Hours up to 6 AM 12/13/19 06:00 Intake Total 1990 ml Output Total 370 ml Balance 1620 ml ROBYN MOORE MD Dec 13, 2019 12:31
[2019-12-13 14:00] VITALS: BP 134/56
[2019-12-13 18:00] VITALS: BP 136/58
[2019-12-13 22:00] VITALS: BP 121/50
[2019-12-14 02:00] VITALS: BP 143/59
[2019-12-14] MEDS: IPRATROPIUM 0.5MG/ALBUTEROL 2.5MG INH SOL UD 3ML (DUONEB) NEB SCH ×2 (02:00→07:35)
[2019-12-14] MEDS: KETOROLAC 30 MG/ML 1ML VIAL IV SCH ×2 (04:24→11:16)
[2019-12-14] MEDS: PIPERACILLIN/TAZOBACTAM SOD 3.375 GM in D5W MINI-BAG PLUS 50 ML IV SCH ×2 (04:24→11:16)
[2019-12-14 06:00] VITALS: BP 141/58
[2019-12-14 06:17] LABS: HEMATOCRIT 37.7 % (36.0-47.0); HEMOGLOBIN 12.5 g/dl (12.0-15.5); MEAN CORPUSCULAR HEMOGLOBIN 31.6 pg (27.0-33.0); MEAN CORPUSCULAR HGB CONC 33.2 g/dl (32.0-36.5); MEAN CORPUSCULAR VOLUME 95.2 fl (80.0-96.0); PLATELET COUNT, AUTOMATED 167 10^3/uL (150-450); RED BLOOD COUNT 3.96 10^6/uL (4.00-5.40); WHITE BLOOD COUNT 5.6 10^3/uL (4.0-10.0)
[2019-12-14] MEDS: SYMBICORT 80/4.5MCG INHALER 6GM INH SCH (07:35)
[2019-12-14] MEDS ORDERED: MOM 30ML SUSPENSION UDC PO ONE (09:00)
[2019-12-14] MEDS: AZITHROMYCIN INJ 500 MG, VIAL MATE ADAPTER 1 EACH in D5W 250 ML IV SCH (09:19)
[2019-12-14] MEDS: ENOXAPARIN 40MG/0.4ML SYRINGE (J1650 PER 10MG) SC SCH (09:20)
[2019-12-14] MEDS: NICOTINE 14 MG/24 HR TRANSDERMAL TD SCH (09:20)
[2019-12-14] MEDS: SENOKOT S TAB PO SCH (09:20)
--- NOTE | 2019-12-14 11:19 | IPNPDOC ---
Text Note Date of Service The patient was seen on 12/14/19. NOTE Patient seen and examined this morning. States that she is doing fine. Has had her breakfast and tolerated well. PHYSICAL EXAMINATION: GENERAL APPEARANCE: Alert and oriented female HEENT: Normocephalic, atraumatic, anicteric sclera, posterior pharynx was nonerythematous, and moist mucous membranes. CARDIOVASCULAR: Regular rate and rhythm with a normal S1 and S2. No murmurs, rubs, or gallops were auscultated. LUNGS: Clear auscultation bilaterally. ABDOMEN: Soft, Surgical dressing in place. GABINO drain in place which has drained around 60 mL candida fluid MUSCULOSKELETAL: No swollen joints or tender areas. EXTREMITIES: No pretibial edema, radial and dorsalis pedis pulses equal bilaterally. NEUROLOGICAL: Cranial nerves IIXII intact bilaterally. ASSESSMENT/PLAN: Patient is 69 years old female with past medical history of COPD, colon cancer was admitted to the hospital for abdominal ventral hernia repair. After surgery patient developed increased shortness of breath with increase sputum production. Patient stated that she has chronic cough, but after surgery she started feeling more short of breath and more whitish sputum production. Chest x-ray showed Significant subcutaneous emphysema . The scan was done which showed atelectasis versus lower lobe infiltrates 1. Shortness of breath/COPD exacerbation versus pneumonia. CAT scan showing possible interstitial pneumonia on bilateral lower lobes. The patient already is on Zosyn and azithromycin has been added. Sputum culture has been ordered. Pro- Bartolome is negative. Incentive spirometry. Spoke with her regarding the importance of incentive spirometry.. She is cleared from discharge from my standpoint as she is not on any oxygen and can be discharged on Levaquin 750 daily for 4 days. Also, she has been a smoker and nicotine patches will be started. 2. Ventral hernia repair. As per surgery Pain controlled diet and activity as per surgery Continue inhalers She is medically cleared for discharge. We will sign off and please reconsult if needed VS,Noebone, I+O VS, Noebone, I+O Laboratory Tests 12/14/19 05:57 Vital Signs Date Time Temp Pulse Resp B/P (MAP) Pulse Ox O2 Delivery O2 Flow Rate FiO2 12/14/19 09:15 18 12/14/19 06:00 98.2 73 141/58 (85) 91 Room Air 12/13/19 22:00 1.0 I&O- Last 24 Hours up to 6 AM 12/14/19 06:00 Intake Total 880 ml Output Total 1450 ml Balance -570 ml ROBYN MOORE MD Dec 14, 2019 11:18
[2019-12-14] MEDS ORDERED: SYMB80INH INH (12:40)
[2019-12-14] MEDS ORDERED: PROAAER10 INH (12:40)
[2019-12-14] MEDS ORDERED: KETO10TAB PO (12:40)
[2019-12-14] MEDS ORDERED: AZIT-12 PO (12:43)
--- NOTE | 2019-12-14 12:48 | DS.PDOC ---
Discharge Summary General Date of Admission Dec 12, 2019 at 14:57 Date of Discharge December 14, 2019 Discharge Summary PROCEDURES PERFORMED DURING STAY: Robotic-assisted laparoscopic retro-muscular repair of complex abdominal wall hernia with bilateral transversus abdominis release. ADMITTING DIAGNOSES: 1. Incisional hernia 2. Diastases 3. History of colon cancer. DISCHARGE DIAGNOSES: 1. Incisional hernia 2. Diastases 3. History of colon cancer 4. Reactive airway disease/COPD exacerbation 5. Pneumonia. COMPLICATIONS/CHIEF COMPLAINT: Incisional Ventral Hernia. HISTORY OF PRESENT ILLNESS: . HOSPITAL COURSE: . DISCHARGE MEDICATIONS: Please see below. ALLERGIES: Please see below. PHYSICAL EXAMINATION ON DISCHARGE: VITAL SIGNS: Please see below. GENERAL: HEENT: NECK: CARDIOVASCULAR EXAMINATION: RESPIRATORY EXAMINATION: ABDOMINAL EXAMINATION: EXTREMITIES: SKIN: NEUROLOGICAL EXAMINATION: PSYCHIATRIC EXAMINATION: LABORATORY DATA: Please see below. IMAGING: PROGNOSIS: ACTIVITY: [As tolerated]. DIET: DISCHARGE PLAN: DISPOSITION: . DISCHARGE INSTRUCTIONS: 1. . ITEMS TO FOLLOWUP ON ON OUTPATIENT: 1. Patient will be seen next week to evaluate for possible removal of drain DISCHARGE CONDITION: [Stable]. TIME SPENT ON DISCHARGE: Greater than minutes. Vital Signs/I&Os Vital Signs Date Time Temp Pulse Resp B/P (MAP) Pulse Ox O2 Delivery O2 Flow Rate FiO2 12/14/19 09:15 18 12/14/19 06:00 98.2 73 141/58 (85) 91 Room Air 12/13/19 22:00 1.0 I&O- Last 24 Hours up to 6 AM 12/14/19 06:00 Intake Total 880 ml Output Total 1450 ml Balance -570 ml Laboratory Data Labs 24H Laboratory Tests 2 12/14/19 05:57: Nucleated Red Blood Cells % (auto) 0.0 CBC/BMP Laboratory Tests 12/14/19 05:57 Microbiology Microbiology 12/13/19 Gram Stain - Final, Resulted 12/13/19 Sputum Culture, Resulted Pending Discharge Medications Scheduled Azithromycin (Azithromycin) 250 Mg Tablet, 250 MG PO ASDIRECTED 2 the first day followed by 1 for days 2-5 Budesonide/Formoterol (Symbicort 80-4.5 Mcg Inhaler) 6.9 Gm Hfa.aer.ad, 2 PUFF INH BID Scheduled PRN Albuterol Sulfate (Proair Hfa) 8.5 Gm Hfa.aer.ad, 2 PUFF INH Q4-6HP PRN for wheezing Ketorolac Tromethamine (Ketorolac Tromethamine) 10 Mg Tablet, 1 TAB PO Q6HP PRN for pain Allergies Uncoded Allergies: ONE TYPE OF CHEMOTHERAPY (Allergy, Intermediate, left side of body rash., 12/11/19) unknown the name of the medication BEREKET CLAYTON MD Dec 14, 2019 12:48
== END 2019-12-14 14:30 | disposition home or self-care (01) | DRG 353 ==
LOC: M SDC 06:00 → M MSPAV 16:36 → M SDC 12-12 14:56 → M MSPAV 12-12 14:57
PROVIDERS: ADMIT Surgery; ATTEND Surgery
PROC: 0KNL4ZZ Release Left Abdomen Muscle, Percutaneous Endoscopic Approach (ICD-10-PCS; 2019-12-11)
PROC: 0KNK4ZZ Release Right Abdomen Muscle, Percutaneous Endoscopic Approach (ICD-10-PCS; 2019-12-11)
PROC: 0WUF4JZ Supplement Abdominal Wall with Synthetic Substitute, Percutaneous Endoscopic Approach (ICD-10-PCS; principal; 2019-12-11 07:30)
DX: K43.2 Incisional hernia without obstruction or gangrene (principal); J18.9 Pneumonia, unspecified organism; J98.11 Atelectasis; J44.1 Chronic obstructive pulmonary disease with (acute) exacerbation; T81.82XA Emphysema (subcutaneous) resulting from a procedure, initial encounter; Z88.8 Allergy status to other drugs, medicaments and biological substances

== ENCOUNTER 2020-04-01 10:43 | Emergency (ER) | payer MEDICARE ==
[~2020-04-01] VITALS: Ht 162.6 cm; Wt 75.5 kg
[~2020-04-01 10:43] MED LIST changes: +AZIT-12 PO; +D31000TA2 PO; +KETO10TAB PO; -LIDOCAINE 1% MDV 20ML VIAL SQ PRN; +PROAAER10 INH; +SYMB80INH INH; -VITAD1000T PO
[2020-04-01] MEDS ORDERED: ACET-653 (10:49)
[2020-04-01] MEDS ORDERED: PERCOCET 5MG/325MG TAB PO ONE (11:30)
--- NOTE | 2020-04-01 11:50 | REP ---
INDICATION: pain. COMPARISON: CT pelvis 07/19/2019 TECHNIQUE: Single AP pelvis with two views left hip FINDINGS: AP pelvis: Pelvic ring is preserved. The iliac wings are intact. Injection granulomas overlie the right buttock and iliac wing unchanged there are staple lines overlying bowel in the right abdomen from prior partial colectomy. Degenerative changes are seen in the spine with disc space narrowing throughout. Hip joint spaces are symmetric with small marginal osteophytes S tabular roof. Pubic rami and symphysis pubis unremarkable. No visible fracture. Left hip soft tissue injection granuloma again seen. No evidence of a femoral head fracture or AVN. No narrowing of the joint space femoral neck intertrochanteric region and proximal femoral shaft intact pubic rami and left SI joint without acute finding IMPRESSION: 1. No evidence of fracture or destructive lesion in the pelvis and left hip. 2. Benign injection granulomata bilaterally 3. Suture lines over the right abdomen in bowel consistent with prior bowel surgery. 4. Degenerative disc changes in the lumbar spine. <Electronically signed by George Son > 04/01/20 [id number]
[2020-04-01] MEDS ORDERED: GABA-843 PO (12:56)
[2020-04-01] MEDS ORDERED: GABAPENTIN 300 MG CAP PO ONE (13:00)
[2020-04-01 13:20] VITALS: BP 140/63
== END 2020-04-01 13:22 | disposition home or self-care (01) ==
LOC: M ED 10:43
DX: M54.32 Sciatica, left side (principal); J44.9 Chronic obstructive pulmonary disease, unspecified; M51.36 Other intervertebral disc degeneration, lumbar region; F17.200 Nicotine dependence, unspecified, uncomplicated; Z88.8 Allergy status to other drugs, medicaments and biological substances; Z79.899 Other long term (current) drug therapy

== ENCOUNTER → 2020-07-15 | Outpatient (CLI) | payer MEDICARE ==
[~2020-07-15] MED LIST changes: +ACET-653; +GABA-282 PO
--- NOTE | 2020-07-15 16:56 | REP ---
INDICATION: ABD PAIN, INCISIONAL HERNIA W/O OBST. COMPARISON: CT 07/19/2019. TECHNIQUE: Noncontrast CT images through the abdomen and pelvis with coronal and sagittal reconstructions. FINDINGS: CT abdomen: Lung bases show some minor and dependent atelectatic changes in the deep sulci bilaterally. No effusion, infiltrate, nodule or mass visible. Heart size is not enlarged. No definite hiatal hernia. Liver, spleen, gallbladder, pancreas and adrenal glands are without acute finding. No biliary dilatation, calcified gallstone or upper abdominal pathologic sized adenopathy. Again seen is a right hemicolectomy with anastomotic suture lines the right upper quadrant for the ileocolic anastomosis, stable. Stool and gas are seen in the transverse colon, splenic flexure and left colon. Small bowel loops fluid-filled but without abnormal dilatation. Some loops adherent to the deep fascia of the anterior abdominal wall. The previously noted 3.3 x 3.4 cm ventral supraumbilical hernia has been closed. There is no recurrence of hernia. Does appear to be some trace amount of soft tissue density and scarring at the hernia site ventrally. However no bowel herniation has occurred. The aorta has atherosclerotic calcifications without aneurysm. The kidneys show no stone, hydronephrosis or mass. Two small left renal cysts are unchanged. No perinephric edema. Ureters show normal course to the bladder without dilatation or stone. There are vascular calcifications in the iliofemoral arteries. I see no ascites in the abdomen. There is no free air or sign of perforation in the abdomen or pelvis. Bone windows show diffuse degenerative disc change with marked disc space narrowing L2-3 through L4-5 with vacuum phenomenon. Less narrowing at L1-2 and preservation at L5-S1 for disc height. No compression deformity or destructive lesion. There are some facet hypertrophic changes and marginal osteophytes lower lumbar spine. The visualized ribs and lower thoracic levels show no compression deformity or destructive lesions. CT pelvis: The sacrum and SI joints were unremarkable. There is bilateral sacralization of the transverse processes of L5 as anatomic variation. The iliac wings, acetabulae and hips without acute finding. There are some minor degenerative changes of the hips. Bladder well filled and without mass, wall thickening or stone. No pelvic mass or adenopathy. Small bowel loops fluid-filled without abnormal dilatation. The distal left colon, sigmoid and rectum grossly intact. No pelvic free fluid. No inguinal adenopathy. There is omental fat in the proximal inguinal canal on the left but no bowel herniation, appearance unchanged. IMPRESSION: 1. Status post closure of supraumbilical hernia without recurrence of that hernia of omental fat since the previous study. No bowel herniation seen. Small amount of soft tissue density superficial to the fascia in the subcutaneous fat noted which could be palpable as scar. 2. Atherosclerotic calcifications of the abdominal aorta. No acute findings in the solid organs of the abdomen. The patient has had a prior right hemicolectomy with ileocolic anastomosis grossly intact. Two small left renal cysts are unchanged. No hydronephrosis or solid mass. No stones. Para 3. Small bowel loops are fluid filled but not abnormally dilated. No ascites, perforation or free air. <Electronically signed by George Son > 07/15/20 0551
== END ==
LOC: M RAD 13:04
PROVIDERS: ATTEND Surgery
DX: K43.2 Incisional hernia without obstruction or gangrene (principal); R10.84 Generalized abdominal pain

== ENCOUNTER → 2021-02-12 | Outpatient (CLI) | payer MEDICARE ==
[~2021-02-12] MED LIST changes: +ALBU8.5H INH; +D32000CA PO; +OMEP40CA4 PO; -OMEP40CA97 PO
[2021-02-12 11:04] LABS: ALBUMIN 3.5 GM/DL (3.2-5.2); ALT/SGPT 23 U/L (12-78); BILIRUBIN,TOTAL 0.8 MG/DL (0.2-1.0); BLOOD UREA NITROGEN 15 MG/DL (7-18); CALCIUM LEVEL 9.6 MG/DL (8.8-10.2); CARBON DIOXIDE LEVEL 28 MEQ/L (21-32); CHLORIDE LEVEL 110 MEQ/L (98-107); CREATININE FOR GFR 0.96 MG/DL (0.55-1.30); GLOMERULAR FILTRATION RATE > 60.0 (>39); GLUCOSE, FASTING 94 MG/DL (70-100); POTASSIUM SERUM 4.4 MEQ/L (3.5-5.1); SODIUM LEVEL 143 MEQ/L (136-145); TOTAL PROTEIN 6.8 GM/DL (6.4-8.2)
== END ==
LOC: M LAB 09:58
PROVIDERS: ATTEND Nurse Practitioner Family
DX: E87.5 Hyperkalemia (principal)

== ENCOUNTER → 2021-02-12 | Outpatient (CLI) | payer MEDICARE | LOC: M LABSMTC 09:33 | PROVIDERS: ATTEND Anesthesiology | DX: Z01.818 Encounter for other preprocedural examination (principal); Z11.52 Encounter for screening for COVID-19 ==

== ENCOUNTER 2021-02-17 07:20 | Day surgery (SDC) | payer MEDICARE ==
[~2021-02-17] VITALS: Ht 162.6 cm; Wt 73.9 kg
[~2021-02-17 07:20] MED LIST changes: +NS 1,000 ML IV ONE
[2021-02-17] MEDS ORDERED: LIDOCAINE 2% 100MG/5ML SDV (FOR ANES.) As Ordered ONE (08:21)
[2021-02-17] MEDS ORDERED: propofoL 200 MG/20 ML VIAL As Ordered ONE (08:21)
--- NOTE | 2021-02-17 08:33 | ROOR ---
Patient Name: Nano Vasquez Procedure Date: 02/17/2021 7:58 AM Date of : 1950 Age: 70 Room: [facility] Gender: Female Note Status: Finalized Procedure: Colonoscopy Indications: High risk colon cancer surveillance: Personal history of colon cancer Providers: Michael Flood MD Referring MD: Ambreen Green ([place]), [employer] Requesting Provider: Medicines: Monitored Anesthesia Care Complications: No immediate complications. Procedure: Pre-Anesthesia Assessment: - Prior to the procedure, a History and Physical was performed, and patient medications and allergies were reviewed. The patient is competent. The risks and benefits of the procedure and the sedation options and risks were discussed with the patient. All questions were answered and informed consent was obtained. Patient identification and proposed procedure were verified by the physician, the nurse and the anesthesiologist in the endoscopy suite. Mental Status Examination: alert and oriented. Airway Examination: normal oropharyngeal airway and neck mobility. Respiratory Examination: clear to auscultation. CV Examination: normal. Prophylactic Antibiotics: The patient does not require prophylactic antibiotics. Prior Anticoagulants: The patient has taken no previous anticoagulant or antiplatelet agents. ASA Grade Assessment: III - A patient with severe systemic disease. After reviewing the risks and benefits, the patient was deemed in satisfactory condition to undergo the procedure. The anesthesia plan was to use monitored anesthesia care (MAC). Immediately prior to administration of medications, the patient was re-assessed for adequacy to receive sedatives. The heart rate, respiratory rate, oxygen saturations, blood pressure, adequacy of pulmonary ventilation, and response to care were monitored throughout the procedure. The physical status of the patient was re-assessed after the procedure. The Colonoscope was introduced through the anus and advanced to the ileocolonic anastomosis. The colonoscopy was somewhat difficult due to a tortuous colon. Successful completion of the procedure was aided by applying abdominal pressure. The patient tolerated the procedure well. The quality of the bowel preparation was good. Findings: Hemorrhoids were found on perianal exam. There was evidence of a prior [id number] ileo-colonic anastomosis in the transverse colon. This was patent and was characterized by healthy appearing mucosa. A diminutive polyp was found in the transverse colon. The polyp was flat. The polyp was removed with a cold snare. Resection was complete, but the polyp tissue was only partially retrieved. Estimated blood loss was minimal. Two flat polyps were found in the rectum. The polyps were 1 to 2 mm in size. These polyps were removed with a cold snare. Resection and retrieval were complete. Estimated blood loss was minimal. The retroflexed view of the distal rectum and anal verge was normal and showed no anal or rectal abnormalities. Impression: - Hemorrhoids found on perianal exam. - Patent [id number] ileo-colonic anastomosis, characterized by healthy appearing mucosa. - One diminutive polyp in the transverse colon, removed with a cold snare. Complete resection. Partial retrieval. - Two 1 to 2 mm polyps in the rectum, removed with a cold snare. Resected and retrieved. - The distal rectum and anal verge are normal on retroflexion view. Recommendation: - Discharge patient to home (ambulatory). - Repeat colonoscopy in 3 years for surveillance. - Telephone my office for pathology results in 1 week. Procedure Code(s): --- Professional --- 58290, Colonoscopy, flexible; with removal of tumor(s), polyp(s), or other lesion(s) by snare technique Diagnosis Code(s): --- Professional --- Z85.038, Personal history of other malignant neoplasm of large intestine K64.9, Unspecified hemorrhoids Z98.0, Intestinal bypass and anastomosis status K63.5, Polyp of colon K62.1, Rectal polyp CPT copyright 2019 [employer]. All rights reserved. The codes documented in this report are preliminary and upon boom tender review may be revised to meet current compliance requirements. Michael Flood MD Michael Flood MD 02/17/2021 8:33:39 AM Electronically signed by Michael Flood MD Number of Addenda: 0 Note Initiated On: 02/17/2021 7:58 AM Estimated Blood Loss: Estimated blood loss was minimal.
[2021-02-17 08:57] VITALS: BP 118/57
== END 2021-02-17 09:33 | disposition home or self-care (01) ==
LOC: M OPP 07:20
PROVIDERS: ATTEND Surgery
DX: Z12.11 Encounter for screening for malignant neoplasm of colon (principal); Z85.038 Personal history of other malignant neoplasm of large intestine; Z98.0 Intestinal bypass and anastomosis status; K63.5 Polyp of colon; K62.1 Rectal polyp; K64.8 Other hemorrhoids; F17.210 Nicotine dependence, cigarettes, uncomplicated; Z79.899 Other long term (current) drug therapy; Z88.8 Allergy status to other drugs, medicaments and biological substances

== ENCOUNTER 2021-07-08 11:38 | Emergency (ER) | payer MEDICARE ==
[~2021-07-08] VITALS: Ht 162.6 cm; Wt 72.2 kg
[~2021-07-08 11:38] MED LIST changes: -NS 1,000 ML IV ONE
[2021-07-08] MEDS ORDERED: PRED10TA2 (11:49)
[2021-07-08] MEDS ORDERED: IPRA0.00 (11:49)
[2021-07-08 12:35] LABS: VENOUS BASE EXCESS 3.3 (-2.0-2.0); VENOUS HCO3 28.3 MEQ/L (23.0-27.0); VENOUS O2 SATURATION 59.3 % (60.0-80.0); VENOUS PH 7.426 UNITS (7.330-7.430); VENOUS STANDARD HCO3 26.2 MEQ/L; VENOUS TOTAL CO2 29.6 MEQ/L (24.0-28.0)
[2021-07-08 12:46] LABS: BASO % 0.1 % (0.0-1.0); HEMATOCRIT 50.5 % (36.0-47.0); HEMOGLOBIN 16.1 g/dl (12.0-15.5); LYMPH # 0.7 10^3/uL (1.5-5.0); LYMPH % 8.3 % (24.0-44.0); MEAN CORPUSCULAR HEMOGLOBIN 29.4 pg (27.0-33.0); MEAN CORPUSCULAR HGB CONC 31.9 g/dl (32.0-36.5); MEAN CORPUSCULAR VOLUME 92.3 fl (80.0-96.0); MONO # 0.2 10^3/uL (0.0-0.8); MONO % 1.9 % (2.0-8.0); NEUTROPHILS # 7.4 10^3/uL (1.5-8.5); NEUTROPHILS % 89.1 % (36.0-66.0); PLATELET COUNT, AUTOMATED 287 10^3/uL (150-450); RED BLOOD COUNT 5.47 10^6/uL (4.00-5.40); WHITE BLOOD COUNT 8.3 10^3/uL (4.0-10.0)
[2021-07-08] MEDS: IPRATROPIUM 0.5MG/ALBUTEROL 2.5MG INH SOL UD 3ML (DUONEB) NEB SCH (13:02)
[2021-07-08 13:04] LABS: CK-MB VALUE MASS 1.8 NG/ML (<3.6)
[2021-07-08 13:23] LABS: BILIRUBIN,DIRECT 0.2 MG/DL (0.0-0.2); BILIRUBIN,TOTAL 0.9 MG/DL (0.2-1.0); THYROID STIMULATING HORMONE 0.454 uIU/ML (0.358-3.740); THYROXINE (T4) 8.5 UG/DL (4.5-12.0); TOTAL PROTEIN 7.4 GM/DL (6.4-8.2)
[2021-07-08] MEDS ORDERED: ISOVUE-370 76% 100ML VIAL As Ordered ONE (14:32)
[2021-07-08 15:27] VITALS: BP 139/64
== END 2021-07-08 15:45 | disposition home or self-care (01) ==
LOC: M ED 11:38
DX: B34.9 Viral infection, unspecified (principal); R06.02 Shortness of breath; J44.9 Chronic obstructive pulmonary disease, unspecified; F17.200 Nicotine dependence, unspecified, uncomplicated; R22.40 Localized swelling, mass and lump, unspecified lower limb; Z79.51 Long term (current) use of inhaled steroids
CPT/HCPCS: 36415; 71045; 71275; 80047; 80076; 82550; 82553; 82803; 83605; 83880; 84436; 84443; 84484; 85025; 87040; 87798; 93005; 93041; 94640; 99285; Q9967

== ENCOUNTER → 2022-06-03 | Outpatient (CLI) | payer MEDICARE ==
[~2022-06-03] MED LIST changes: +ALBU2.5V10 NEB; -ALBU83IN NEB; +B-12100010 PO; -D31000TA2 PO; +IPRA0.00; +PRED10TA2; +VITA100093 PO; +VITA200016 PO; +[UNRECOGNIZED DRUG - OTHER] PO
== END ==
LOC: M LABSMTC 09:09
PROVIDERS: ATTEND Anesthesiology
DX: Z01.812 Encounter for preprocedural laboratory examination (principal); Z20.822 Contact with and (suspected) exposure to COVID-19

== ENCOUNTER 2022-06-08 10:42 | Day surgery (SDC) | payer MEDICARE ==
[~2022-06-08] VITALS: Ht 162.6 cm; Wt 70.8 kg
[~2022-06-08 10:42] MED LIST changes: +NS 1,000 ML IV ONE
[2022-06-08 13:44] VITALS: BP 138/69
== END 2022-06-08 13:48 | disposition home or self-care (01) ==
LOC: M OPP 10:42
PROVIDERS: ATTEND Surgery
DX: Z85.038 Personal history of other malignant neoplasm of large intestine (principal); K63.5 Polyp of colon; K57.30 Diverticulosis of large intestine without perforation or abscess without bleeding; Z98.0 Intestinal bypass and anastomosis status; Z92.21 Personal history of antineoplastic chemotherapy; J44.9 Chronic obstructive pulmonary disease, unspecified; F17.210 Nicotine dependence, cigarettes, uncomplicated; Z88.8 Allergy status to other drugs, medicaments and biological substances; Z79.899 Other long term (current) drug therapy

== ENCOUNTER → 2022-06-17 | Outpatient (CLI) | payer MEDICARE ==
[~2022-06-17] MED LIST changes: +GASTROGRAFIN SOLUTION 30ML As Ordered ONE; +ISOVUE-370 76% 100ML VIAL As Ordered ONE; -NS 1,000 ML IV ONE
[2022-06-17 09:31] LABS: CREATININE FOR GFR 1.04 MG/DL (0.55-1.30); GLOMERULAR FILTRATION RATE 55.3 (>39)
== END ==
LOC: M LAB 08:24
PROVIDERS: ATTEND Physician Assistant
DX: R79.9 Abnormal finding of blood chemistry, unspecified (principal); R10.9 Unspecified abdominal pain; Z85.038 Personal history of other malignant neoplasm of large intestine
CPT/HCPCS: 36415; 74178; 82565; 84520; Q9963; Q9967

== ENCOUNTER → 2023-04-21 | Outpatient (CLI) | payer MEDICARE ==
[~2023-04-21] MED LIST changes: -GASTROGRAFIN SOLUTION 30ML As Ordered ONE; -ISOVUE-370 76% 100ML VIAL As Ordered ONE; +LEVO1TAB39 PO
== END ==
LOC: M RAD 15:41
PROVIDERS: ATTEND Registered Nurse
DX: J44.1 Chronic obstructive pulmonary disease with (acute) exacerbation (principal)

== ENCOUNTER → 2023-11-14 | Outpatient (CLI) | payer MEDICARE | LOC: M RAD 08:49 | PROVIDERS: ATTEND Student in an Organized Health Care Education/Training Program | DX: R06.02 Shortness of breath (principal) ==

== ENCOUNTER → 2024-01-27 | Outpatient (CLI) | payer MEDICARE | LOC: M WHC 07:19 | PROVIDERS: ATTEND Registered Nurse | DX: Z13.820 Encounter for screening for osteoporosis (principal); K21.9 Gastro-esophageal reflux disease without esophagitis; M85.89 Other specified disorders of bone density and structure, multiple sites ==

== ENCOUNTER 2024-07-17 07:46 | Day surgery (SDC) | payer MEDICARE ==
[~2024-07-17] VITALS: Ht 162.6 cm; Wt 67.3 kg
[~2024-07-17 07:46] MED LIST changes: -ADV250INH INH; +ADVA1AER9 INH; +ALBU2.5V10 INH; +GABA-1172 PO; -GABA-282 PO; +LR 1,000 ML IV SCH; +PRES10CA2 PO
[2024-07-17] MEDS: PHENYLEPHRINE 2.5% OPHTH SOL 2ML OD SCH (09:15)
[2024-07-17] MEDS: TETRACAINE 0.5% OPHTH SOLN 4ML OD SCH (09:15)
[2024-07-17] MEDS: FLURBIPROFEN 0.03% OPHTH SOLN 2.5 ML OD SCH (09:15)
[2024-07-17] MEDS: CYCLOPENTOLATE 1% OPHTH SOLN 2ML BTL OD SCH (09:15)
[2024-07-17] MEDS ORDERED: propofoL 200 MG/20 ML VIAL As Ordered ONE (10:24)
[2024-07-17] MEDS: LIDOCAINE 1% SDV 5ML VIAL As Ordered ONE (11:09)
[2024-07-17] MEDS: CEFUROXIME 1MG/0.1ML INTRACAMERAL INJ As Ordered ONE (11:20)
[2024-07-17 11:28] VITALS: BP 160/73; TEMP 97.4; O2SAT 96
== END 2024-07-17 11:45 | disposition home or self-care (01) ==
LOC: M SDC 07:46
PROVIDERS: ATTEND Ophthalmology
DX: H25.11 Age-related nuclear cataract, right eye (principal); H25.011 Cortical age-related cataract, right eye; J44.9 Chronic obstructive pulmonary disease, unspecified; Z79.51 Long term (current) use of inhaled steroids; Z79.899 Other long term (current) drug therapy; Z92.21 Personal history of antineoplastic chemotherapy; Z85.038 Personal history of other malignant neoplasm of large intestine; F17.210 Nicotine dependence, cigarettes, uncomplicated
CPT/HCPCS: 66984; J0697; V2632

== ENCOUNTER → 2024-07-19 | Outpatient (CLI) | payer MEDICARE ==
[~2024-07-19] MED LIST changes: +ISOVUE-370 76% 100ML VIAL As Ordered ONE; -LR 1,000 ML IV SCH
== END ==
LOC: M RAD 07:42
PROVIDERS: ATTEND Nurse Practitioner Women's Health
DX: Z85.038 Personal history of other malignant neoplasm of large intestine (principal); J84.9 Interstitial pulmonary disease, unspecified; I25.10 Atherosclerotic heart disease of native coronary artery without angina pectoris
CPT/HCPCS: 71260; 74160; Q9967

== ENCOUNTER 2024-09-18 08:48 | Day surgery (SDC) | payer MEDICARE ==
[~2024-09-18] VITALS: Ht 162.6 cm; Wt 66.5 kg
[~2024-09-18 08:48] MED LIST changes: -ISOVUE-370 76% 100ML VIAL As Ordered ONE; +LR 1,000 ML IV SCH; +MIDAZOLAM INJ 2MG/2ML VIAL As Ordered ONE; +PREDOPD OP; +fentaNYL 100 MCG/2 ML INJECTION As Ordered ONE
[2024-09-18] MEDS: CYCLOPENTOLATE 1% OPHTH SOLN 2ML BTL OS SCH (09:24)
[2024-09-18] MEDS: PHENYLEPHRINE 2.5% OPHTH SOL 2ML OS SCH (09:24)
[2024-09-18] MEDS: FLURBIPROFEN 0.03% OPHTH SOLN 2.5 ML OS SCH (09:24)
[2024-09-18] MEDS: TETRACAINE 0.5% OPHTH SOLN 4ML OS SCH (09:25)
[2024-09-18] MEDS ORDERED: ALBUTEROL SULFATE 2.5MG/0.5ML INH CONCENTRATE NEB SOLN NEB ONE (09:35)
[2024-09-18] MEDS: LIDOCAINE 1% SDV 5ML VIAL As Ordered ONE (11:18)
[2024-09-18] MEDS: CEFUROXIME 1MG/0.1ML INTRACAMERAL INJ As Ordered ONE (11:19)
[2024-09-18 11:35] VITALS: BP 126/56; TEMP 98.2; O2SAT 97
== END 2024-09-18 12:01 | disposition home or self-care (01) ==
LOC: M SDC 08:48
PROVIDERS: ATTEND Ophthalmology
DX: H25.12 Age-related nuclear cataract, left eye (principal); J44.9 Chronic obstructive pulmonary disease, unspecified; Z79.899 Other long term (current) drug therapy; F17.210 Nicotine dependence, cigarettes, uncomplicated; Z85.828 Personal history of other malignant neoplasm of skin; Z85.038 Personal history of other malignant neoplasm of large intestine; Z92.21 Personal history of antineoplastic chemotherapy; Z90.49 Acquired absence of other specified parts of digestive tract
CPT/HCPCS: 66984; J0697; J2250; J3010; V2632